=== PATIENT | female | born 1940 | race Caucasian/White ===

== ENCOUNTER 2022-08-24 10:45 | Outpatient (RCR) | payer MEDICARE, OTHER, SELFPAY ==
--- NOTE | 2022-07-21 08:41 | PT.OPEX ---
PT [place] Outpatient Eval PT [facility] Outpatient Eval Start: 07/21/22 07:16 Freq: Status: Active Protocol: Document 07/21/22 07:16 YANICK (Rec: 07/21/22 08:08 YANICK [id number]) E-signed By Lorrie Hernandez PT Physical Therapy Outpatient Evaluation Insurance Information Recert Due Date 10/13/22 Insurance Name Medicare B Medical Diagnosis Balance Deficit Treating Diagnosis Trish LE Weakness, Impaired gait skills Fall Risk Functional Strength Deficit Referring MD Dr Osman Sinclair Subjective Subjective Marleny reports having her Lt CASTRO just this past November, with PT following. I did the ex for about a month, but not really since then. I am more concerned about my balance problems. I only fell once and that was after my stroke (February 27, 2021). She denies having any real pain. Some thigh pain if I stand for too long (5-10 min). Walking seems to help reduce that pain. With a cart, I can walk for about 20-30 min, have something to hang on to. I use the cane when outdoors - fear of curbs/steps and cracks in the sidewalk, walking on the grass, etc. In the house I don't use the cane . I do still drive, but avoid driving in the dark, snow or rain. My drives then. I sleep ok, some good some not so good nights. But that has been true for about 10 years now. I live with my in a 2 story home and basement. I do fine - go slow and hang onto railings. Pain Comments Fairly painfree, unless standing for 5-10 min, have some Lt thigh pain. Date of Last Physician Visit 06/08/22 Current Work Status Retired Preferred Name Kalani Precautions Treatment Precautions/Contraindications Arthritis, Seizures, Sleep Apnea Prior Surgeries: metal implants: Rt RCR, Trish thumbs, Lt TKR, Lt CASTRO Objective Range of Motion Decreased knee EXT on Rt LE (6 deg lag) Limited trunk EXT 20% of normal. Strength Significant strength loss at core and trunk EXT. She states she fatiques quickly with activities and can only stand/ walk for about 20 min at a time. Standing only 5 min Gross hip strength 2/5 EXT, ABD, ER. 3+/5 FF, ADD and IR Swelling Denies edema Palpation Asymmetric ASIC heights (due to lack of Rt knee EXT) in stance. Leveled once in supine /NWB position. Balance & Gait Walks with flat foot contact and slight lateral trunk shift Reduced endurance to reported 20 min. WBOS EO/EC was very good. NBOS EO/EC was fair 15 seconds and increased trunk sway Tandom stance with either leg forward is an average of 7 seconds. SLS average 1 sec trish. Posture Flattened lumbar spine and forward head Other/Pertinent Objective Cannot sit to stand without use of UE on chair arms more than twice in a row Deep squat Dbl leg to average 40 deg with trish hip IR and ADD due to hip weakness. Very poor control and quality of movement with attempting step up and over - quad ecc and conc use impaired Assessment Assessment/Impression 82 yo with DX of Balance Deficit. She arrived to dept via IND ambulation with use of SE Cane held in Rt hand. She ambulates with flat foot strike/reduced heel to toe and forward head. She has reduced trunk EXT. PRETTY score of 40/ 56 with impaired tandom stance , SLS and toe taps at stairs, NBOS with EC. She has significant LE weakness: can only perform 3 partial range bridges, sit to stand without use of UE on chair arms X 2 reps in 30 seconds, partial squat to 40 deg with significant trish hip IR and ADD due to hip weakness. Step up and over - unable to perform without holding on to railing , toe push off and unable to control descent against gravity - very poor trish eccentric and concentric quad control. She fatigued/SoB with 5 min on NuStep. She will benefit from continued skilled physical therapy to provide education in balance/prop tasks, strength and endurance to promote safety with gait and reduce fall risk. Thank you for this referral. Plan of Care Rehabilitation Potential Good Physical Therapy Goals In 4-6 visits, Marleny will be able to: 1. Walk up to 30 min without requiring cart to hold, 75% of the time 2. Execute 10 full range bridges and HOLD for 3 seconds each 3. Perform 5 step up and over, lightly holding railing, with improved quality and control (no toe push off and smooth descent) 4. Complete 10 min on NuStep without SoB noted In 10-12 visits, Marleny will be able to: 1. A/D flight of 10 steps with lightly holding one side rail . 2. Reduced self scoring fear of falling by at least 50% 3. Ambulate without SE Cane up to 20 min with good quality heel to toe gait pattern 4. Sit to stand at least 8 reps in 30 seconds 5. IND in entire HEP to cont on her own once DC from PT to cont to improve in gait skills , balance and reduced fall risk to remain living safely with her in their own home. Coordination/Communication With Referral Source Treatment Plan/Direct Interventions Gait Training,Neuromuscular Re -ed,Self-Care/Home Management, Therapeutic Activities, Therapeutic Exercises Frequency/Duration 1X/Wk for 12 visits Patient Will Be Discharged From Therapy Completion of LTG(s),Skills Plateau,Independent w/HEP, Independently Progressing Discharge Plan Comments Progress with strength/ endurance tasks and gait, balance and proprioception to promote improved safety and quality of gait and movement. Reduce fall risk. Evaluation Billing Untimed Code Treatment Minutes 32 Complexity Moderate Certification Information Initial Certification Date 07/21/22 Ending Certification Date 10/13/22 Provider Signature Shows Agreement With POC & Medical Necessity Physician Signature & Date Requested Please Sign/Date Here Physician Comment/Change : Physician NPI Number #
== END 2022-10-12 12:12 | disposition home or self-care (01) ==
PROVIDERS: Visit Provider Orthopaedic Surgery Sports Medicine
DX: R26.89 Other abnormalities of gait and mobility (principal); Z51.89 Encounter for other specified aftercare
CPT/HCPCS: 97110; 97162

== ENCOUNTER 2024-08-29 11:15 | Outpatient (RCR) | payer MEDICARE, OTHER, SELFPAY ==
--- NOTE | 2023-11-11 16:29 | PT.OPEX ---
PT [place] Outpatient Eval PT [facility] Outpatient Eval Start: 11/10/23 14:29 Freq: Status: Active Protocol: Document 11/10/23 14:31 MARIAH (Rec: 11/10/23 16:15 [facility] [id number]) E-signed By Patricia De La O PT Physical Therapy Outpatient Evaluation Insurance Information Recert Due Date 02/07/24 Insurance Name Medicare B Medical Diagnosis PROXIMAL HUMERAL FRACTURE S42. 302A Treating Diagnosis LEFT SHOULDER PAIN M25.512 WEAKNESS R62.81 Referring MD RABAGO Subjective Subjective I JUST WANT TO GET MY ARM BETTER. I STILL CAN'T BELIEVE I FRACTURED IT. PATIENT DESCRIBES FALLING AND LANDING ON HER LEFT SHOULDER WHILE VISITING HER DTR INCURRING A PROXIMAL HUMERAL FRACTURE. SHE HAS RETURNED HOME AND HAD A VISIT WITH DR. RABAGO WHO HAS REFERRED HER TO BEGIN THERAPY. SHE HAS BEEN PERFORMING HER PENDULUM AND PROM USING HER CONTRALATERAL HAND/ARM FROM A SEATED POSITION WELL AAROM USING A DOWL VAL/CANE FOR ABD, ER, AND FLEX. SHE DESCRIBES THESE EXERCISES QUITE DIFFICULT AND PAINFUL SHE IS WEARING HER ARM CUFF WHEN SHE IS IN THE COMMUNITY BUT NOTHING AT HOME. SHE HAS NOT RETURNED TO HER BED BUT RATHER SLEEPING IN A RECLINER. Pain Comments Date of Last Physician Visit 10/31/23 Current Work Status Retired Preferred Name TARA Precautions Treatment Precautions/Contraindications 11/10/23: 2 MORE WEEKS OF NO AROM Objective Other/Pertinent Objective CERVICAL ROM: WFL SHOULDER AROM - PROM Flexion: L70 *-132 Abduction: L50 -88 Internal Rotation: L BOTTOM GLUT/RIGHT T4 External Rotation: L 22 AT 0/ ABD -38 JOINT MOBILITY/PALPATION: POINT TENDER ABOUT THE PROXIMAL BORDER TX: RAE X 5MIN SHOULDER SHRUG WITH BKWD ROTATION SEATED AAROM TABLE SLIDE FLEX 5 X 10 SEC SEATED SCAP SQUEEZE SUPINE CHEST PRESS AAROM X 10 SUPINE CHEST PRESS TO OVERHEAD X 10 HOLD FOR 5 SEC Assessment Assessment/Impression PATIENT IS AN [address] RABAGO TO EVAL AND TX LEFT PROXIMAL HUMERAL FX; PMHX INCLUDES BUT NOT LIMITED TO R ANKLE OA, IMPAIRED BALANCE RELATED TO LATE EFFECTS OF CVA (02/2021), ABNORMAL GAIT, H/O L CASTRO (2021), CKD 3, NOME, H/O DVT, GERD, SLEEP APNEA, H/O SEIZURE , R SHOULDER RCR (2013), L TKA (03/2013), H/O REPEATED FALLS, LUMBAR PAIN. PATIENT LIVES WITH HER SPOUSE WHO ASSISTS HER INTERMITTENTLY WITH ADL'S. SHE IS HERE FOR HER FIRST PT VISIT SINCE RETURNING BACK HOME AND C/O SIGNIFICANT PAIN ABOUT THE SHOULDER COMPLEX. SHE IS RECEPTIVE TO GENTLE, PATIENT GUIDED, AROM USING RAE/TABLE/OPP ARM. SPOKE WITH SPOUSE TO OBTAIN PULLEYS TO USE AT HOME ON [place] AND TO ENCOURAGE HER TO USE ICE IN ADDITION TO HER CURRENT PAIN MGMT. SHE KAYA PROM AND AAROM QUITE WELL BUT DID NOT TOLERATE BEING IN SUPINE. NEXT VISIT I WILL ATTEMPT TO PERFORM IN SEATED IF SHE WILL ALLOW THE PROM. SHE IS APPROPRIATE FOR SKILLED PHYSICAL THERAPY TO ADDRESS SYMPTOM MGMT, ROM, STRENGTHENING AND STABILIZATION OF RTC/SCAPULAR MUSCULATURE TO RETURN TO FUNCTIONAL USE OF HER LEFT ARM . PATIENT IS IN AGREEMENT WITH POC AND FREQ Primary Functional Limitations USE OF LUE, REACHING, ADL'S, A AUXILIARY, DRIVING Plan of Care Rehabilitation Potential Good Physical Therapy Goals STG IN 4-6 WEEKS: 1. PATIENT WILL DEMONSTRATE GOOD MGMT OF HIS PAIN AND EDEMA WITH REPORTED PAIN </3/ 10 DURING HIS HOME PROGRAM AND WITH THE PROGRESSION OF HIS PHYSICAL THERAPY. 2. PATIENT WILL RETURN TO INDEPENDENCE WITH ADL'S, RETURN TO DRIVING, AND MAINTAIN HIS PRECAUTIONS/ RESTRICTIONS 3. PATIENT WILL DEMONSTRATE PROM TO WFL TO PREPARE FOR RETURN TO FUNCTIONAL USE OF RIGHT UE; LTG WITHIN 10-12 WEEKS: 1. PATIENT WILL DEMONSTRATE AROM OF RIGHT SHOULDER TO WFL TO RETURN TO FULL FUNCTIONAL FOR ADL'S, IADL'S AND PEER CENTERED ACTIVITIES. 2. PATIENT WILL DEMONSTRATE FUNCTIONAL STRENGTH TO RETURN TO REACHING OVERHEAD, ANTERIORLY AND OUT TO SIDE NEEDED DURING PATIENT CENTERED ACTIVITIES. 3. PATIENT WILL DEMONSTRATE INDEPENDENCE WITH HIS HEP TO PROGRESS TWD THE ABOVE MENTIONED GOALS, CONTINUED MGMT OF SYMPTOMS, AND ONGOING IMPROVEMENT WITH ROM, STRENGTH AND FUNCTION FOR A FULL RETURN TO ALL ACTIVITIES Coordination/Communication With Referral Source Treatment Plan/Direct Interventions Electrical Stimulation,Ice/ Cold/Vasopneumatic,Joint Mobilization,Manual Therapy, Neuromuscular Re-ed,Self-Care/ Home Management,Therapeutic Activities,Therapeutic Exercises Frequency/Duration 1X/WK FOR 12 WEEKS Patient Will Be Discharged From Therapy Completion of LTG(s), Independently Progressing Evaluation Billing Untimed Code Treatment Minutes 20 PT Eval No Charge No Complexity Moderate Certification Information Initial Certification Date 11/10/23 Ending Certification Date 02/07/24 Provider Signature Shows Agreement With POC & Medical Necessity Physician Signature & Date Requested Please Sign/Date Here Physician Comment/Change : Physician NPI Number #
--- NOTE | 2024-02-08 11:11 | PT.OPDNX ---
PT [place] Outpatient Daily Note PT [facility] Outpatient Daily Note Start: 11/10/23 14:29 Freq: Status: Active Protocol: Document 02/08/24 09:52 MARIAH (Rec: 02/08/24 11:10 MARIAH [id number]) E-signed By Patricia De La O, PT PT OP Daily Progress Note Visit Information Note Type Daily Note,Recert/Progress Note Visit Number [id number] Insurance Information Recert Due Date 02/07/24 Insurance Name Medicare B Medical Diagnosis PROXIMAL HUMERAL FRACTURE S42. 302A Treating Diagnosis LEFT SHOULDER PAIN M25.512 WEAKNESS R62.81 Referring MD RABAGO Subjective Subjective PATIENT DENIES ANY SLIPS TRIPS OR FALLS SINCE LAST VISIT. SHE REPORTS THAT SHE WILL SEE THE ORTHO TOMORROW AND STATES, I HOPE MY BONE IS HEALING. I REALLY DON'T WANT ANYTHING ELSE WRONG. Pain Comments 11/19 Preferred Name TARA Home Exercise Home Exercise Comments 11/23/23: UPDATED HEP Objective Other/Pertinent Objective CURRENT: 02/08/24 FLEX 130, AD 124, ER @0 38, IR LOWER GLUT 01/05/24: [id number], ABD 136, ER 44, IR MID GLUT 12/22/23: STDG AROM FLEX 122, ABD 108, ER@0 34, IR BOTTOM TO MID GLUT 12/07/23 AROM (STDG)-PROM( SUPINE): FLEX 108-168, ABD 88- 112, ER (@0) 28-@45 32, IR MID GLUT Patient Instructed in Risks/Benefits Yes Therapeutic Exercise Therapeutic Exercise Minutes (minutes) 45 Therapeutic Exercise: To Restore UBE X 5' NO RESISTANCE FWD Functional Status RAE STRAIGHT ARM X 4MIN (VC TO SLOW DOWN) NOT TODAY BALL WALK UP WALL INTO FLEX x 10 SEATED FWD FLEX FROM THIGH TO OVERHEAD X 10 SEATED SHOULDER TO OH X 10 SNOW BILLIE FWD X 10 W/ ASSISTANCE REVIEWED SEATED HANDS BEHIND HEAD AND BUTTERFLY X 10 STDG TB (green) ROW X 15 HOLD 3 SEC STDG TB (green) S'EXT X 15 HOLD 3 SEC STDG AAROM W/CANE FLEX X 10 STDG AAROM W/CANE ABD X 10 WALL CIRCLES X 10 CW/CCW NOT TODAY WALL ALPHABET NOT TODAY STDG SHOULDER FLEX FROM THIGH W/CANE X 10 SEATED SHOULDER B ABD X 10 NOT TODAY STDG CHEST TO OH W/CANE X 10 Treatment Minutes Timed Code Treatment Minutes 45 Total Treatment Time 45 Billing Units Therapeutic Exercise Units 3 Plan of Care Physical Therapy Goals STG IN 4-6 WEEKS: 1. PATIENT WILL DEMONSTRATE GOOD MGMT OF HIS PAIN AND EDEMA WITH REPORTED PAIN </3/ 10 DURING HIS HOME PROGRAM AND WITH THE PROGRESSION OF HIS PHYSICAL THERAPY. 2. PATIENT WILL RETURN TO INDEPENDENCE WITH ADL'S, RETURN TO DRIVING, AND MAINTAIN HIS PRECAUTIONS/ RESTRICTIONS 3. PATIENT WILL DEMONSTRATE PROM TO WFL TO PREPARE FOR RETURN TO FUNCTIONAL USE OF RIGHT UE; LTG WITHIN 10-12 WEEKS: 1. PATIENT WILL DEMONSTRATE AROM OF RIGHT SHOULDER TO WFL TO RETURN TO FULL FUNCTIONAL FOR ADL'S, IADL'S AND PEER CENTERED ACTIVITIES. 2. PATIENT WILL DEMONSTRATE FUNCTIONAL STRENGTH TO RETURN TO REACHING OVERHEAD, ANTERIORLY AND OUT TO SIDE NEEDED DURING PATIENT CENTERED ACTIVITIES. 3. PATIENT WILL DEMONSTRATE INDEPENDENCE WITH HIS HEP TO PROGRESS TWD THE ABVE MENTIONED GOALS, CONTINUED MGMT OF SYMPTOMS, AND ONGOING IMPROVEMENT WITH ROM, STRENGTH AND FUNCTION FOR A FULL RETURN TO ALL ACTIVITIES Daily Plan of Care Continue per POC Recertification Information Initial Certification Date 11/10/23 Recertification Start Date 02/08/24 Recertification Due Date 05/07/24 Reasons to Continue Skilled Therapy TARA DEMONSTRATES CONTINUED IMPROVEMENT WITH HER AROM (SEE ABOVE) WITH CONTINUED STRUGGLES WITH COMBINATION MVMTS BEHIND HEAD AND BEHIND BACK. SHE STRUGGLES WITH GROOMING D/T HER MOTION LOSS WITH INSTRUCTIONS NOT TO FORCE THIS MOTION THE XRAYS FROM HER LAST MD VISIT INDICATE AN ACTIVE FRACTURE. WE WILL CONTINUE WITH HER POC AND FREQ WITH GOAL OF IMPROVING FUNCTIONAL ROM, STRENGTH, PROPRIOCEPTION WELL FUNCTIONAL BALANCE AND SAFE MOBILITY. Rehabilitation Potential GOOD Continued Plan of Care and Interventions ROM, RTC/SCAPULAR STRENGTHENING AND STABILIZATION, FUNCTIONAL MOBILITY, GT, NEUROMUSCULAR RE -EDUCATION, MANUAL THERAPY. Provider Signature Shows Agreement With POC & Medical Necessity Physician Comment/Change Comment or Changes
--- NOTE | 2024-06-05 15:55 | PT.OPDNX ---
PT [place] Outpatient Daily Note PT [facility] Out[facility] Daily Note Start: 11/10/23 14:29 Freq: Status: Active Protocol: Document 06/05/24 13:15 MARIAH (Rec: 06/05/24 15:55 MARIAH [id number]) E-signed By Patricia De La O, PT PT OP Daily Progress Note Visit Information Note Type Daily Note Visit Number [id number] Insurance Information Recert Due Date 02/07/24 Insurance Name Medicare B Medical Diagnosis PROXIMAL HUMERAL FRACTURE S42. 302A Treating Diagnosis LEFT SHOULDER PAIN M25.512 WEAKNESS R62.81 Referring MD RABAGO Subjective Preferred Name TARA Juárez PATIENT RETURNS AFTER TAKING 1MONTH HOLD ON THERAPY AND FEELS HER SHOULDER IS WHAT IT IS. I'M NOT SURE IF GOING TO GET STRETCHED ENOUGH TO DO MY HAIR. I THINK MY BALANCE IS MORE IMPORTANT. Pain Comments 0-2 Precautions Treatment Precautions/Contraindications NO FURTHER APPTS W/ORTHO UNLESS NEEDED Objective Other/Pertinent Objective CURRENT: 06/04/24 STDG AROM 160 /142/45/L2 04/05/24 STDG FLEX AROM 166/ 138/ 45, L5 03/08/24 STDG AROM FLEX 160, ABD 130, ER@0 54, L2 02/22/24 STDG AROM FLEX 146, ABD 128, ER@0 38, IR L4 02/08/24 FLEX 130, AD 124, ER @0 38, IR LOWER GLUT 01/05/24: [id number], ABD 136, ER 44, IR MID GLUT 12/22/23: STDG AROM FLEX 122, ABD 108, ER@0 34, IR BOTTOM TO MID GLUT 12/07/23 AROM (STDG)-PROM( SUPINE): FLEX 108-168, ABD 88- 112, ER (@0) 28-@45 32, IR MID GLUT Functional Test Performed & Score TUG 14 30 STS 10 PRETTY 20/56 : Pretty Balance Scale = 20 This score is associated with almost 100% fall risk and the patient is either already wheelchair bound or may be in the near future. Patient Instructed in Risks/Benefits Yes Therapeutic Exercise Therapeutic Exercise Minutes (minutes) 20 Therapeutic Exercise: To Restore UBE X 5' (2.5 FWD/2.5BKWD) Functional Status BALANCE EXAMS SIDE STEPPING R/L X 20' BKWD WALKING X 10' WALKING WITH SMALLEST KB 40' X 2 SBA Neuromuscular Re-Ed Neuromuscular Reeducation Minutes ( 20 minutes) Neuromuscular Reeducation Comments TUG PRETTY 30 SEC STS STEP TAP X 10 STATIC STAND ON FOAM W/10BOS- >SMALL HEAD TURNS CGA>TRINH HIP ABD R/L X 10 1P STEP UP/DOWN RIGHT THEN UP/ DOWN LEFT 2 X 5 EA WITH ONE RAILING Treatment Minutes Timed Code Treatment Minutes 40 Total Treatment Time 40 Billing Units Therapeutic Exercise Units 3 Assessment/Impression Assessment/Impression SEE BELOW Plan of Care Physical Therapy Goals 1. IMPROVE CORE/HIP/GLUT STRENGTH AND TRUNK STABILITY OVER THE NEXT 6-8 WEEKS FOR IMPROVED FUNCTIONAL MOBILITY, BALANCE, AND GAIT TO DECREASE RISK FOR FALLS. 2. IMPROVE PRETTY SCORE FROM 20/ 56 OVER THE NEXT 6-8 WEEKS FOR IMPROVED SAFETY WITH DAILY ACTIVITIES AND DECREASED RISK OF FALLS. 3. IMPROVE BALANCE, COORDINATION OVER THE NEXT 6-8 WEEKS FOR IMPROVED GAIT AND SAFETY FOR COMMUNITY NAVIGATION WELL PEER CENTERED ACTIVITIES. 4. PATIENT WILL BE INDEPENDENT WITH HER HEP WITH IN 8-12 WEEKS FOR PROGRESSION TOWARD THE AFOREMENTIONED GOALS, CONTINUED SELF IMPROVEMENT WITH STRENGTH, COORDINATION, GAIT, AND SAFETY AWARENESS. Daily Plan of Care Continue per POC Recertification Information Initial Certification Date 11/10/23 Recertification Start Date 06/05/24 Recertification Due Date 09/02/24 Reasons to Continue Skilled Therapy PATIENT RETURNS AFTER A MONTH OUT OF THE CLINIC PERFORMING HER INDIVIDUAL HEP. SHE DEMONSTRATES ROM SIMILAR TO HER PREVIOUS MEASUREMENTS WITHIN 5% BUT UNABLE TO REACH BEHIND HER HEAD ENOUGH TO GROOM HER HAIR. WE HAVE REDIRECTED TO FOCUS ON HER FUNCTIONAL BALANCE AND SAFETY TEACHING NOTING A PRETTY BALANCE EXAM ASSESSING BOTH STATIC AND DYNAMIC FUNCTIONAL BALANCE SCORE OF 20/56 INDICATING A 66% IMMINENT RISK FOR FALL. SHE IS APPROPRIATE FOR SKILLED PHYSICAL THERAPY TO ADDRESS HER FUNCTIONAL BALANCE, GT FOR A VARIETY OF SURFACES, AND BLE/CORE STRENGTHENING IN ORDER TO REDUCE HER RISK FOR FALLS AND PARTICIPATE IN BOTH FAMILY AND PEER CENTERED ACTIVITIES SAFELY AND CONSISTENTLY. Rehabilitation Potential GOOD Continued Plan of Care and Interventions BLE/CORE STRENGTHENING, GT OVER A VARIETY OF SURFACES, FUNCTIONAL BALANCE TRAINING Provider Signature Shows Agreement With POC & Medical Necessity Physician Comment/Change Comment or Changes
== END 2024-09-04 11:58 | disposition home or self-care (01) ==
PROVIDERS: Visit Provider Orthopaedic Surgery Sports Medicine
DX: S42.302A Unspecified fracture of shaft of humerus, left arm, initial encounter for closed fracture (principal); Z51.89 Encounter for other specified aftercare
CPT/HCPCS: 97110; 97140; 97162

== ENCOUNTER 2024-10-05 12:53 | Inpatient (IN) | payer MEDICARE, OTHER, SELFPAY ==
[2024-10-05 13:12] VITALS: BP 137/81; PULSE 88; RESP 20; TEMP 37.2; O2SAT 96
--- NOTE | 2024-10-05 14:43 | CRLHL7_ITS ---
For Patients: As a result of the Century Cures Act, medical imaging exams and procedure reports are released immediately into your electronic medical record. You may view this report before your referring provider. If you have questions, please contact your health care provider. INDICATION: Right-sided hip pain after a fall COMPARISON: None. TECHNIQUE: CT of the right hip performed without intravenous contrast. FINDINGS: Diffuse osseous demineralization. Acute comminuted mildly displaced fracture of the right femur greater trochanter. The fracture line extends into the intertrochanteric region, but no extension is detected into the femoral neck or lesser trochanter. Mild degenerative change of the right hip. Mild degenerative change of the pubic symphysis with chondrocalcinosis. Partially imaged at least mild degenerative change of the sacroiliac joints. Partially imaged left total hip arthroplasty. Multiple small densely calcified uterine fibroids. There are severe atherosclerotic vascular calcifications. IMPRESSION: Acute comminuted mildly displaced fracture of the right femur greater trochanter. The fracture line extends into the intertrochanteric region, but no extension is detected into the femoral neck or lesser trochanter. Mild degenerative change of the right hip. Please note that all CT scans at this facility use dose modulation, iterative reconstruction, and/or weight-based dosing when appropriate to reduce radiation dose to as low as reasonably achievable. Dictated by Rios Hannah MD @ 10/05/2024 3:31:19 PM (Electronically Signed)
--- NOTE | 2024-10-05 15:48 | CRLHL7_ITS ---
For Patients: As a result of the Cures Act, medical imaging exams and procedure reports are released immediately into your electronic medical record. You may view this report before your referring provider. If you have questions, please contact your health care provider. Indication: Hip fracture. Technique: AP view of the pelvis and two views of the right hip. Comparison: None. Findings: Bones: Demineralization of visualized bones. There is subtle irregularity at the greater trochanter. Left total hip arthroplasty changes. Orthopedic hardware appears to be in appropriate alignment.. Joint spaces: Unremarkable. Soft tissues: Unremarkable. Impression: Subtle irregularity and possible lucency at the greater trochanter. Correlate with point tenderness and mechanism of injury. If there is persistent concern for fracture consider further evaluation with CT of the right hip as clinically indicated. Dictated by Robson Viera MD @ 10/05/2024 4:37:26 PM (Electronically Signed)
--- NOTE | 2024-10-05 15:54 | ED_ITS ---
HPI - Fall General Date Seen: 10/05/24 Chief Complaint: Fall/Minor Trauma Stated Complaint: fall - leg injury Time Seen by Provider: 10/05/24 14:36 Source: patient and family Mode of arrival: wheelchair Limitations: no limitations History of Present Illness HPI Narrative: Patient is an 84-year-old female presenting to the emergency department for right hip pain. Couple days ago she was at her daughter's house for Christal when she lost her balance and fell over. She states she always has poor balance and she this fall occurred when she was bending over trying to pick something up. She adamantly denies hitting her head. The fall was witnessed by her daughter. Pain has not been too bad but she is unable to put any pressure on her right leg. Nor other injuries noted. Denies any numbness to the right leg or any back pain. Is currently on warfarin for AFib. States right now most of her pain is to her left upper medial femur and left groin. Related Data Home Medications ?Medication ?Instructions ?Recorded ?Confirmed atorvastatin 20 mg tablet 20 mg PO HS 06/02/22 10/05/24 calcium citrate 250 mg PO QDAY 06/02/22 02/14/24 cholecalciferol (vitamin D3) 25 1,000 unit PO DAILY 06/02/22 02/14/24 mcg (1,000 unit) capsule omeprazole 20 mg capsule,delayed 20 mg PO QDAY 06/02/22 02/14/24 release phenytoin sodium extended 100 mg 100 mg PO QAM 06/02/22 10/05/24 capsule carvedilol 6.25 mg tablet 6.25 mg PO BID 10/28/23 10/05/24 warfarin 2 mg tablet 3 - 4 mg PO DAILY 02/14/24 10/05/24 phenytoin sodium extended 100 mg 200 mg PO HS 10/05/24 10/05/24 capsule Allergies Allergy/AdvReac Type Severity Reaction Status Date / Time NSAIDS (Non-Steroidal Allergy Unknown Verified 10/05/24 13:19 Anti-Inflamma Review of Systems Narrative: Pertinent systems reviewed and were negative unless stated in HPI PFSH PFSH Medical History DVT (deep venous thrombosis) (2013) ?I82.409 - Acute embolism and thrombosis of unspecified deep veins of unspecified lower extremity (ICD-10) Arthritis ?M19.90 - Unspecified osteoarthritis, unspecified site (ICD-10) GERD (gastroesophageal reflux disease) ?K21.9 - Gastro-esophageal reflux disease without esophagitis (ICD-10) Sleep apnea ?G47.30 - Sleep apnea, unspecified (ICD-10) Seizures ?R56.9 - Unspecified convulsions (ICD-10) Surgical History History of thumb surgery (04/17/14) ?Z98.890 - Other specified postprocedural states (ICD-10) History of thumb surgery (03/15/18) ?Z98.890 - Other specified postprocedural states (ICD-10) History of arthroscopy of right shoulder (09/11/14) ?Z98.890 - Other specified postprocedural states (ICD-10) H/O tubal ligation ?Z98.51 - Tubal ligation status (ICD-10) 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) ?Z96.652 - Presence of left artificial knee joint (ICD-10) History of appendectomy ?Z90.49 - Acquired absence of other specified parts of digestive tract (ICD- 10) 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) ?Z96.642 - Presence of left artificial hip joint (ICD-10) Family History Mother Diabetes Heart problem High blood pressure Father Alcohol dependence Sister COPD (chronic obstructive pulmonary disease) Heart problem Other Rheumatoid arthritis Social History Smoking Status: Never smoker Do you use any of these nicotine containing products: None Second hand tobacco smoke exposure: No How often do you have a drink containing alcohol: never AUDIT-C Alcohol total score: 0 Non-prescribed substance use: denies use Exam Narrative: Exam Narrative: Const: Well-nourished, Well-developed, in mild distress Eyes: PERRL, no conjunctival injection, and symmetrical lids HENT: Atraumatic external nose and ears. Moist mucous membranes. Neck: Symmetric, trachea midline, No thyromegaly. CVS: RRR, No murmurs or gallops. Peripheral pulses 2+ and equal in all extremities RESP: Unlabored respiratory effort. Clear to auscultation bilaterally. GI: Nontender/Nondistended, No rebound or guarding. MSK:Extremities w/o deformity, decreased range of motion to right hip. Tenderness of left groin and left upper medial femur. Skin: Warm, Dry. No rashes or lesions. Neuro: Normal Muscle tone, No focal neurological deficits. Psych: Awake, Alert, & Oriented x3. Appropriate mood and affect. Const: Vital Signs, click to edit/add: Vital Signs - 24 hr 10/05/24 13:12 Temperature 99 F Pulse Rate [Pulse Oximeter] 88 Respiratory Rate 20 Blood Pressure [Ri t Upper Arm] 137/81 Pulse Oximetry 96 Oxygen Delivery Me thod Room Air Course Vital Signs Vital signs: Initial Vital Signs Temperature 99 F 10/05/24 13:12 Temperature Source Temporal Artery Scan 10/05/24 13:12 Pulse Rate 88 10/05/24 13:12 Pulse Rhythm Regular 10/05/24 13:12 Respiratory Rate 20 10/05/24 13:12 Blood Pressure 137/81 10/05/24 13:12 Blood Pressure Mean 99 10/05/24 13:12 Blood Pressure Position Sitting 10/05/24 13:12 Pulse Oximetry 96 10/05/24 13:12 Oxygen Delivery Method Room Air 10/05/24 13:12 Vital Signs Temperature 99 F 10/05/24 13:12 Pulse Rate 88 10/05/24 13:12 Respiratory Rate 20 10/05/24 13:12 Blood Pressure 137/81 10/05/24 13:12 Pulse Oximetry 96 10/05/24 13:12 Oxygen Delivery Method Room Air 10/05/24 13:12 Temperature 99 F 10/05/24 13:12 Pulse Rate 88 10/05/24 13:12 Respiratory Rate 20 10/05/24 13:12 Blood Pressure 137/81 10/05/24 13:12 Pulse Oximetry 96 10/05/24 13:12 Oxygen Delivery Method Room Air 10/05/24 13:12 MDM - Fall MDM Narrative Medical decision making narrative: Patient is an 84-year-old female presenting after fall. She is otherwise doing well. Cannot put pressure to her right leg. I am concerned about hip fracture and I will go straight to a CT scan for better evaluation. Is not requesting anything for pain at this time. CT scan does show any acute greater trochanteric fracture. I spoke to the on- call orthopedic PA who states they will do surgery tomorrow. Is asking for AP pelvis and cross-table lateral views on x-ray. I spoke to radiology department and they will do these imaging. Will also order CBC, BMP, INR. I spoke to the admitting hospitalist who accepted her for admission. Patient is agreeable to this plan. Imaging Data Right hip CT: Attestation: I have reviewed the pertinent imaging results. Radiologist's impression: Acute comminuted mildly displaced fracture of the right femur greater trochanter. The fracture line extends into the intertrochanteric region, but no extension is detected into the femoral neck or lesser trochanter. Mild degenerative change of the right hip. Please note that all CT scans at this facility use dose modulation, iterative reconstruction, and/or weight-based dosing when appropriate to reduce radiation dose to as low as reasonably achievable. Dictated by Rios Hannah MD @ 10/05/2024 3:31:19 PM Discharge Plan Discharge Clinical Impression: Closed fracture of right hip Qualifiers: Encounter type: initial encounter Qualified Code(s): S72.001A - Fracture of unspecified part of neck of right femur, initial encounter for closed fracture Patient Disposition: Admitted As Observation Condition: Stable Prescriptions: No Action carvedilol 6.25 mg tablet 6.25 mg PO BID warfarin 2 mg tablet 3 - 4 mg PO DAILY Rx Instructions: 3 MG EVERY TUESDAY, 4 MG ALL OTHER DAYS OF THE WEEK cholecalciferol (vitamin D3) 25 mcg (1,000 unit) capsule 1,000 unit PO DAILY phenytoin sodium extended 100 mg capsule 100 mg PO QAM atorvastatin 20 mg tablet 20 mg PO HS omeprazole 20 mg capsule,delayed release(DR/EC) 20 mg PO QDAY calcium citrate 250 mg calcium tablet 250 mg PO QDAY phenytoin sodium extended 100 mg capsule 200 mg PO HS Follow Up/Referrals: Provider,Not a Local [Primary Care Provider] -
[2024-10-05 17:17] LABS: Basophils Absolute Auto 0.02 K/uL (0.00-0.30); Basophils Percent Auto 0.4 % (0.0-3.0); Eosinophils Absolute Auto 0.14 K/uL (0.00-0.50); Eosinophils Percent Auto 3.1 % (0.0-7.0); Hematocrit 32.1 % (33.0-51.0); Hemoglobin* 10.4 gm/dL (12.0-16.0); Lymphocytes Percent Auto 26.1 % (20-44); Mean Corpuscular HGB Conc 32 gm/dL (32-36); Mean Corpuscular Hemoglobin 32 pg (26-34); Mean Corpuscular Volume 99 fL (80-100); Monocytes Percent Auto 9.6 % (0.0-11.0); Neutrophils Absolute Auto 2.79 K/uL (1.7-7.0); Neutrophils Percent Auto 60.8 % (42.0-72.0); Platelet Count* 121 K/uL (140-440); RDW Coefficient of Variation % 12.9 % (11.5-15.5); Red Blood Count 3.24 m/uL (4.00-5.20); White Blood Count* 4.59 K/uL (4.50-11.00)
--- NOTE | 2024-10-05 17:20 | ED.NURSE ---
Patient able to use bedpan with help from nursing staff. Able to have a large void. Rolls well to both sides
[2024-10-05 17:31] LABS: Slide Review Reflex No
[2024-10-05 17:37] LABS: Chloride* 106 mmol/L (96-114); INR 2.51 (0.91-1.10); Sodium* 136 mmol/L (135-149)
[2024-10-05 17:38] LABS: Potassium* 4.4 mmol/L (3.6-5.1)
[2024-10-05 17:40] LABS: Anion Gap 4 mEq/L (7-15); Carbon Dioxide* 26 mmol/L (20-32); Creatinine* 0.6 mg/dL (0.5-1.5); Estimated Glomerular Filt Rate 88 ml/min
[2024-10-05 17:41] LABS: Blood Urea Nitrogen* 19 mg/dL (7-30); Calcium* 9.4 mg/dL (8.4-10.6); Glucose* 102 mg/dL (60-115)
[2024-10-05 17:42] VITALS: BP 164/85; PULSE 86; RESP 16; TEMP 37.3; O2SAT 97; BMI 25.7
--- NOTE | 2024-10-05 17:47 | PM.IMHP1 ---
Hospitalist- H&P: HPI History of Present Illness Date Seen: 10/05/24 Chief complaint: fall - leg injury Narrative: Marleny Thurman is a 84 year old woman presents to the emergency department for persistent right hip pain status post fall 10/02/24. Was visiting her daughter in [place]. Was preparing some [employer] decorations. Was not using her cane as she was walking. Bent forward to reach for something when she lost her balance. Fell landing on her right hip. Did not strike her head. No other injuries. No loss of consciousness. Only able to get up with help from son-in-law and grandson. Tried for a couple days to see if it would get better but did not in so that she presents to our emergency department today for further assessment. Complains of pain in right upper medial femur and right groin. 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 INR goal is 2-3. Review of Systems Status of ROS: Reports: 6 or more systems reviewed and unremarkable except as noted in History and below [facility] Medical History Chronic anticoagulation ?Z79.01 - [facility] (current) use of anticoagulants (ICD-10) Seizure disorder ?G40.909 - Epilepsy, unspecified, not intractable, without status epilepticus (ICD-10) Constipation ?K59.00 - Constipation, unspecified (ICD-10) Cerebellar dysmetria ?R27.8 - Other lack of coordination (ICD-10) Lumbar spinal stenosis ?M48.061 - Spinal stenosis, lumbar region without neurogenic claudication (ICD-10) Hyperlipidemia ?E78.5 - Hyperlipidemia, unspecified (ICD-10) Obstructive sleep apnea ?G47.33 - Obstructive sleep apnea (adult) (pediatric) (ICD-10) Chronic kidney disease ?N18.9 - Chronic kidney disease, unspecified (ICD-10) Essential hypertension ?I10 - Essential (primary) hypertension (ICD-10) Osteoarthritis ?M19.90 - Unspecified osteoarthritis, unspecified site (ICD-10) 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 - Ataxia following cerebral infarction (ICD-10) History of cerebellar stroke ?Z86.73 - Personal history of transient ischemic attack (TIA), and cerebral infarction without residual deficits (ICD-10) History of embolic stroke ?Z86.73 - Personal history of transient ischemic attack (TIA), and cerebral infarction without residual deficits (ICD-10) DVT (deep venous thrombosis) (2012) ?I82.409 - Acute embolism and thrombosis of unspecified deep veins of unspecified lower extremity (ICD-10) Arthritis ?M19.90 - Unspecified osteoarthritis, unspecified site (ICD-10) GERD (gastroesophageal reflux disease) ?K21.9 - Gastro-esophageal reflux disease without esophagitis (ICD-10) Sleep apnea ?G47.30 - Sleep apnea, unspecified (ICD-10) Seizures ?R56.9 - Unspecified convulsions (ICD-10) Surgical History History of thumb surgery (04/17/14) ?Z98.890 - Other specified postprocedural states (ICD-10) History of thumb surgery (03/15/18) ?Z98.890 - Other specified postprocedural states (ICD-10) History of arthroscopy of right shoulder (09/11/14) ?Z98.890 - Other specified postprocedural states (ICD-10) H/O tubal ligation ?Z98.51 - Tubal ligation status (ICD-10) 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) ?Z96.652 - Presence of left artificial knee joint (ICD-10) History of appendectomy ?Z90.49 - Acquired absence of other specified parts of digestive tract (ICD-10) 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) ?Z96.642 - Presence of left artificial hip joint (ICD-10) Family History Mother Diabetes Heart problem High blood pressure Father Alcohol dependence Sister COPD (chronic obstructive pulmonary disease) Heart problem Other Rheumatoid arthritis Social History Smoking Status: Never smoker Do you use any of these nicotine containing products: None Second hand tobacco smoke exposure: No How often do you have a drink containing alcohol: never AUDIT-C Alcohol total score: 0 Non-prescribed substance use: denies use Meds Home Medications and Allergies Home Medications ?Medication ?Instructions ?Recorded ?Confirmed ?Type atorvastatin 20 mg tablet 20 mg PO HS 06/02/22 10/05/24 History cholecalciferol (vitamin D3) 25 1,000 unit PO DAILY 06/02/22 10/05/24 History mcg (1,000 unit) capsule phenytoin sodium extended 100 mg 100 mg PO QAM 06/02/22 10/05/24 History capsule carvedilol 6.25 mg tablet 6.25 mg PO BID 10/28/23 10/05/24 History warfarin 2 mg tablet 3 - 4 mg PO DAILY 02/14/24 10/05/24 History calcium 1 tab PO BID 10/05/24 10/05/24 History omeprazole 40 mg capsule,delayed 40 mg PO DAILY 10/05/24 10/05/24 History release phenytoin sodium extended 100 mg 200 mg PO HS 10/05/24 10/05/24 History capsule vit C 250 mg-vit E 90 mg-zinc 40 1 tab PO BID 10/05/24 10/05/24 History mg-copper 1 or-[id number] capsule (PreserVision AREDS-2) Allergies Allergy/AdvReac Type Severity Reaction Status Date / Time NSAIDS (Non-Steroidal Allergy Unknown Verified 10/05/24 13:19 Anti-Inflamma Exam Narrative: Exam Narrative: Exam patient in the hospital emergency department. Appears comfortable when I see her. Vision and hearing are adequate. Alert and oriented x3. Friendly, articulate, cooperative. External auditory canals are clear. Tympanic membranes normal. Midline nasal septum. Dentition in good repair. Buccal mucosa is moist. No icterus or conjunctival injection. Conjugate gaze. Cranial nerves 3-12 grossly normal. Neck is supple. Midline trachea. No head neck lymphadenopathy. Lungs are clear to auscultation without wheezing, rhonchi, or rales. Chest wall excursions are full. Heart tones with regular rhythm, normal S1-S2. Grade 2-3/6 systolic murmur best heard left lower sternal border no gallops or rubs. PMI not laterally displaced. Abdomen with active bowel sounds, soft, nontender. No rebound or guarding. Chronic bilateral lower extremity edema left greater than right. No focal motor neurologic deficits. Skin is intact. Const: Vital Signs, click to edit/add: Vital Signs - 24 hr 10/05/24 13:12 Temperature 99 F Pulse Rate [Pulse Oximeter] 88 Respiratory Rate 20 Blood Pressure [Ri ght Upper Arm] 137/81 Pulse Oximetry 96 Oxygen Delivery Me thod Room Air Hospitalist - H&P: Result Labs Labs: Short CBC 10/05/24 Range/Units 17:11 WBC 4.59 (4.50-11.00) K/uL Hgb 10.4 L (12.0-16.0) gm/dL Hct 32.1 L (33.0-51.0) % Plt Count 121 L (140-440) K/uL Imaging CT scan right hip: Attestation: I have reviewed the pertinent imaging results. Radiologist's impression: Acute comminuted mildly displaced fracture of the right femur greater trochanter. The fracture line extends into the intertrochanteric region, but no extension is detected into the femoral neck or lesser trochanter. Mild degenerative change of the right hip. Assessment and Plan Assessment and plan (1) Closed fracture of right hip: Problem comment: -CT scan right hip on 10/05/2024 revealed the following: Acute comminuted mildly displaced fracture of the right femur greater trochanter. The fracture line extends into the intertrochanteric region, but no extension is detected into the femoral neck or lesser trochanter. Mild degenerative change of the right hip. -Dr. 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 Will ask Physical therapy and Occupational therapy to consult and treat. 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 Last seizure when she was in her 20s. Continues to be on lifelong antiseizure medication. -continue with phenytoin 100 mg in the morning and 200 mg in the evening Status: Acute (5) Anemia: Problem comment: -10/05/2024 hemoglobin 10, MCV 99, MCH 32 -will check iron studies and vitamin B12 level -monitor Status: Acute (6) Thrombocytopenia: Problem comment: -10/05/2024 platelet count 121,000 -monitor Status: Acute (7) Chronic anticoagulation: Problem comment: -warfarin anticoagulation, INR goal 2-3 -10/05/2024 INR 2.5, hold warfarin, administer vitamin K 5 mg IV in preparation for orthopedic surgery on 10/06/2024 for closed hip fracture, recheck INR in the morning and consider additional vitamin K of warranted -pharmacy consultation placed to help with dosing of warfarin postop Status: Acute Plan 1. Reviewed impression and plans and recommendations with patient. 2. Answered her questions to her satisfaction. 3. She is agreeable to above stated plans and recommendations. 4. Would certainly benefit from outpatient assessment for osteoporosis in consideration of initiation for treatment depending on findings. Total Time Spent Total Time Spent: 65 min
[2024-10-05] MEDS: PHYTONADIONE (VIT K1) 5 MG in 0.9 % SODIUM CHLORIDE 50 ml 50 ML 100 MG IVPB (18:42)
[2024-10-05 19:08] LABS: Appearance Urine Clear (Clear); Bilirubin Urine Negative (Negative); Blood Urine Trace-intact (Negative); Color Urine Yellow (Yellow); Glucose Urine Negative (Negative); Ketones Urine Negative (Negative); Leukocyte Esterase Urine Negative (Negative); Nitrite Urine Negative (Negative); Protein Urine Negative (Negative); Specific Gravity Urine 1.015 (1.000-1.030); Urobilinogen Urine 0.2 (0.2-1.0); pH Urine 5.5 (5.0-8.5)
--- NOTE | 2024-10-05 19:10 | PC.NURSE ---
Pleasant and cooperative, alert and oriented patient was admitted to [facility] via cart at approximately 1730. VSS and temp 99.1F. She denies pain. Vitamin K given per MD order. Catheter inserted with 400ml of clear, yellow urine out and sample was sent to lab. Report given to oncoming nurse.
[2024-10-05 19:54] LABS: RBC Urine 0-2 (0-2); Squamous Epithelial Cell Urine Few (None-Few); WBC Urine 0-2 (0-5)
[2024-10-05] MEDS: ATORVASTATIN 10 MG TABLET 20 MG PO (20:16)
[2024-10-05] MEDS: PHENYTOIN EXTENDED RELEASE 100 MG CAPSULE 200 MG PO (20:17)
[2024-10-05] MEDS: carvediloL 6.25 MG TABLET PO (20:17)
[2024-10-05 21:03] VITALS: BP 126/59; PULSE 90; RESP 18; TEMP 37; O2SAT 96
[2024-10-06] VITALS (25 sets, daily range): BP systolic 110–174; BP diastolic 55–101; PULSE 70–100; RESP 14–20; TEMP 35.8–37.6; O2SAT 88–100
[2024-10-06] MEDS: SODIUM CHLORIDE 0.9 % (FLUSH) 10 ML SYRINGE 5 ML IVF (00:11)
[2024-10-06] MEDS: 0.9 % SODIUM CHLORIDE 1000 ml 1,000 ML 75 ML IV (00:11)
[2024-10-06 04:31] LABS: Hematocrit 27.9 % (33.0-51.0); Hemoglobin* 9.1 gm/dL (12.0-16.0); Mean Corpuscular HGB Conc 33 gm/dL (32-36); Mean Corpuscular Hemoglobin 32 pg (26-34); Mean Corpuscular Volume 99 fL (80-100); Platelet Count* 109 K/uL (140-440); Red Blood Count 2.83 m/uL (4.00-5.20); White Blood Count* 3.77 K/uL (4.50-11.00)
[2024-10-06 04:45] LABS: Slide Review Reflex No
[2024-10-06 05:00] LABS: Chloride* 108 mmol/L (96-114); Sodium* 135 mmol/L (135-149)
[2024-10-06 05:01] LABS: Potassium* 4.4 mmol/L (3.6-5.1)
[2024-10-06 05:03] LABS: Creatinine* 0.5 mg/dL (0.5-1.5); Est. Creatinine Clearance* 35.52; Estimated Glomerular Filt Rate 92 ml/min; Iron* 54 ug/dL (37-170)
[2024-10-06 05:04] LABS: Anion Gap 4 mEq/L (7-15); Blood Urea Nitrogen* 22 mg/dL (7-30); Carbon Dioxide* 23 mmol/L (20-32); Glucose* 96 mg/dL (60-115)
[2024-10-06 05:05] LABS: Calcium* 8.7 mg/dL (8.4-10.6)
[2024-10-06 05:07] LABS: C Reactive Protein* 6.8 mg/dL (0.5-1.0)
[2024-10-06 05:12] LABS: Percent Iron Saturation 25 % (20-50); Total Iron Binding Capacity 215 ug/dL (265-497)
[2024-10-06 05:55] LABS: Vitamin B12* 194 pg/mL (243-894)
[2024-10-06 06:55] LABS: INR 1.27 (0.91-1.10); Prothrombin Time 16.8 Seconds
--- NOTE | 2024-10-06 07:01 | PC.NURSE ---
End of shift [id number] ? Pt alert, oriented, cooperative. Pt on bedrest during shift. Denies pain in R hip. Tolerating RA and NPO diet. Gomez catheter noted to be patent and draining. Pedal pulse present. Observed to sleep. Pt appears to be resting comfortably at end of shift with call light within reach. ?
--- NOTE | 2024-10-06 07:37 | REH.OT ---
Order reviewed. Pt found to have R femur fx after fall. Pending ortho consult. OT will evaluate after ortho consult to ensure appropriate treatment.
--- NOTE | 2024-10-06 08:30 | CRLHL7_ITS ---
For Patients: As a result of the Cures Act, medical imaging exams and procedure reports are released immediately into your electronic medical record. You may view this report before your referring provider. If you have questions, please contact your health care provider. Indication: INTRA OP RIGHT FEMORAL RODDING EXAM Technique: Four fluoroscopic images of the right hip. Fluoroscopic time 75.3 seconds. IMPRESSION: Fluoroscopic guidance for open reduction internal fixation of proximal femoral fracture. Dictated by Herberth Sanches MD @ 10/08/2024 9:10:48 AM (Electronically Signed)
--- NOTE | 2024-10-06 09:00 | P.ORCN_ITS ---
History of Present Illness HPI Date Seen: 10/06/24 Requesting physician: Zacarias Kramer Chief complaint: fall - leg injury Narrative: Kalani is a pleasant 84-year-old female who sustained a ground level fall and landed on her right hip approximately 3 days ago. Following the injury she developed anterior hip and groin pain that was aggravated by weight-bearing activities. Due to pain, she had difficulty walking and bearing weight. She was subsequently brought into the emergency room by her family yesterday evening, where x-rays and CT scan revealed an intertrochanteric hip fracture. She was subsequently admitted to the hospitalist service for further management. She is on chronic anticoagulation with warfarin since sustaining a CVA several years ago. Her INR was 2.51 upon admission, so she was given vitamin K to reverse the affects of the warfarin. This morning she states that she is feeling well. Her pain is well controlled, however, she does experience anterior hip and groin pain if she moves her hip. [facility] Medical History Chronic anticoagulation ?Z79.01 - shelter (current) use of anticoagulants (ICD-10) Seizure disorder ?G40.909 - Epilepsy, unspecified, not intractable, without status epilepticus (ICD-10) Constipation ?K59.00 - Constipation, unspecified (ICD-10) Cerebellar dysmetria ?R27.8 - Other lack of coordination (ICD-10) Lumbar spinal stenosis ?M48.061 - Spinal stenosis, lumbar region without neurogenic claudication (ICD-10) Hyperlipidemia ?E78.5 - Hyperlipidemia, unspecified (ICD-10) Obstructive sleep apnea ?G47.33 - Obstructive sleep apnea (adult) (pediatric) (ICD-10) Chronic kidney disease ?N18.9 - Chronic kidney disease, unspecified (ICD-10) Essential hypertension ?I10 - Essential (primary) hypertension (ICD-10) Osteoarthritis ?M19.90 - Unspecified osteoarthritis, unspecified site (ICD-10) 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 - Ataxia following cerebral infarction (ICD-10) History of cerebellar stroke ?Z86.73 - Personal history of transient ischemic attack (TIA), and cerebral infarction without residual deficits (ICD-10) History of embolic stroke ?Z86.73 - Personal history of transient ischemic attack (TIA), and cerebral infarction without residual deficits (ICD-10) DVT (deep venous thrombosis) (2013) ?I82.409 - Acute embolism and thrombosis of unspecified deep veins of unspecified lower extremity (ICD-10) Arthritis ?M19.90 - Unspecified osteoarthritis, unspecified site (ICD-10) GERD (gastroesophageal reflux disease) ?K21.9 - Gastro-esophageal reflux disease without esophagitis (ICD-10) Sleep apnea ?G47.30 - Sleep apnea, unspecified (ICD-10) Seizures ?R56.9 - Unspecified convulsions (ICD-10) Surgical History History of thumb surgery (04/17/14) ?Z98.890 - Other specified postprocedural states (ICD-10) History of thumb surgery (03/15/18) ?Z98.890 - Other specified postprocedural states (ICD-10) History of arthroscopy of right shoulder (09/11/14) ?Z98.890 - Other specified postprocedural states (ICD-10) H/O tubal ligation ?Z98.51 - Tubal ligation status (ICD-10) 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) ?Z96.652 - Presence of left artificial knee joint (ICD-10) History of appendectomy ?Z90.49 - Acquired absence of other specified parts of digestive tract (ICD- 10) 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) ?Z96.642 - Presence of left artificial hip joint (ICD-10) Family History Mother Diabetes Heart problem High blood pressure Father Alcohol dependence Sister COPD (chronic obstructive pulmonary disease) Heart problem Other Rheumatoid arthritis Social History What is your current living situation?: I presently have a place to live Problems where you live: no known problems Problems where you live details: chair lift system as well In the past 12 months, utilities in danger of being shut off: no In past 12 months, lack of transportation kept you from medical appts, meetings, work, or getting things needed for daily living: no In the past 12 mos, have been you worried that your food would run out before you had money to buy more?: never true In the past 12 mos, the food you bought just didn't last and you didn't have money to buy more?: never true Highest level of school completed/degree received: high school graduate Smoking Status: Never smoker Do you use any of these nicotine containing products: None Second hand tobacco smoke exposure: No How often do you have a drink containing alcohol: 4 or more times a week Alcohol type: wine How many standard drinks containing alcohol do you have on a typical day: 1 or 2 How often do you have six or more drinks on one occasion: Never AUDIT-C Alcohol total score: 4 Non-prescribed substance use: denies use Caffeine: Yes (cup coffee daily) How often does anyone, including family, friends and others, physically hurt you : never How often does anyone, including family, friends and others, insult or talk down to you: never How often does anyone, including family, friends and others, threaten you with harm: never How often does anyone, including family, friends and others, scream or curse at you: never service: No Meds Home Medications and Allergies Home Medications ?Medication ?Instructions ?Recorded ?Confirmed ?Type atorvastatin 20 mg tablet 20 mg PO HS 06/02/22 10/05/24 History cholecalciferol (vitamin D3) 25 1,000 unit PO DAILY 06/02/22 10/05/24 History mcg (1,000 unit) capsule phenytoin sodium extended 100 mg 100 mg PO QAM 06/02/22 10/05/24 History capsule carvedilol 6.25 mg tablet 6.25 mg PO BID 10/28/23 10/05/24 History warfarin 2 mg tablet 3 - 4 mg PO DAILY 02/14/24 10/05/24 History calcium 1 tab PO BID 10/05/24 10/05/24 History omeprazole 40 mg capsule,delayed 40 mg PO DAILY 10/05/24 10/05/24 History release phenytoin sodium extended 100 mg 200 mg PO HS 10/05/24 10/05/24 History capsule vit C 250 mg-vit E 90 mg-zinc 40 1 tab PO BID 10/05/24 10/05/24 History mg-copper 1 [id number] capsule (PreserVision AREDS-2) Allergies Allergy/AdvReac Type Severity Reaction Status Date / Time NSAIDS (Non-Steroidal Allergy Unknown Verified 10/05/24 13:19 Anti-Inflamma Ortho Exam Narrative Exam Narrative: General: Alert and oriented in no apparent distress. Musculoskeletal: Right lower extremity was examined. No obvious deformity. Anterior hip and groin pain reproduced with attempted movement of the hip. Sensation was intact to light touch throughout the dorsal plantar aspects of the foot. EHL, tibialis anterior, gastrocnemius/soleus were intact. Foot was warm and well perfused with 2+ DP pulse. Const Vital Signs, click to edit/add: Vital Signs - 24 hr 10/05/24 13:12 10/05/24 17:42 10/05/24 21:03 Temperature 99 F 99.1 F 98.6 F Pulse Rate [Pulse Oximeter] 88 86 90 Respiratory Rate 20 16 18 Blood Pressure [Right Arm] 164/85 H 126/59 L Blood Pressure [Right Upper Arm] 137/81 Pulse Oximetry 96 97 96 Oxygen Delivery Method Room Air Room Air Room Air 10/06/24 00:40 10/06/24 00:40 10/06/24 05:14 Temperature 98.7 F 98.7 F Pulse Rate [Pulse Oximeter] 87 78 Respiratory Rate 18 18 Blood Pressure [Right Arm] 140/69 H 136/63 Blood Pressure [Right Upper Arm] Pulse Oximetry 95 95 97 Oxygen Delivery Method Room Air Room Air Room Air 10/06/24 07:00 10/06/24 07:38 10/06/24 07:45 Temperature 99.0 F Pulse Rate [Pulse Oximeter] 84 Respiratory Rate 16 16 16 Blood Pressure [Right Arm] 150/85 H Blood Pressure [Right Upper Arm] Pulse Oximetry 95 95 Oxygen Delivery Method Room Air Room Air Results Labs Labs: Laboratory Results - last 48 hr 10/05/24 10/05/24 10/06/24 17:11 19:00 04:20 WBC 4.59 3.77 L RBC 3.24 L 2.83 L Hgb 10.4 L 9.1 L Hct 32.1 L 27.9 L MCV 99 99 MCH 32 32 MCHC 32 33 RDW Coeff of Dhiraj 12.9 Plt Count 121 L 109 L Neut % (Auto) 60.8 Lymph % (Auto) 26.1 Butler % (Auto) 9.6 Eos % (Auto) 3.1 Baso % (Auto) 0.4 Neut # (Auto) 2.79 Lymph # (Auto) 1.20 Butler # (Auto) 0.40 Eos # (Auto) 0.14 Baso # (Auto) 0.02 Abs Immat Gran (auto) 0.00 Imm/Tot Granulo (auto) 0.0 INR 2.51 H Sodium 136 135 Potassium 4.4 4.4 Chloride 106 108 Carbon Dioxide 26 23 Anion Gap 4 L 4 L BUN 19 22 Creatinine 0.6 0.5 Estimated Creat Clear 35.52 Estimated GFR 88 92 Glucose 102 96 Calcium 9.4 8.7 Iron 54 TIBC 215 L % Saturation 25 C-Reactive Protein 6.8 H Vitamin B12 194 L Urine Color Yellow Urine Appearance Clear Urine pH 5.5 Ur Specific Edison 1.015 Urine Protein Negative Urine Glucose (UA) Negative Urine Ketones Negative Urine Blood Trace-intact A Urine Nitrite Negative Urine Bilirubin Negative Urine Urobilinogen 0.2 Ur Leukocyte Esterase Negative Urine RBC 0-2 Urine WBC 0-2 Ur Squamous Epith Cells Few Urine Bacteria None 10/06/24 10/06/24 05:51 05:51 WBC RBC Hgb Hct MCV MCH MCHC RDW Coeff of Dhiraj Plt Count Neut % (Auto) Lymph % (Auto) Butler % (Auto) Eos % (Auto) Baso % (Auto) Neut # (Auto) Lymph # (Auto) Butler # (Auto) Eos # (Auto) Baso # (Auto) Abs Immat Gran (auto) Imm/Tot Granulo (auto) INR Cancelled 1.27 H Sodium Potassium Chloride Carbon Dioxide Anion Gap BUN Creatinine Estimated Creat Clear Estimated GFR Glucose Calcium Iron TIBC % Saturation C-Reactive Protein Vitamin B12 Urine Color Urine Appearance Urine pH Ur Specific Edison Urine Protein Urine Glucose (UA) Urine Ketones Urine Blood Urine Nitrite Urine Bilirubin Urine Urobilinogen Ur Leukocyte Esterase Urine RBC Urine WBC Ur Squamous Epith Cells Urine Bacteria Diagnostic results Additional Comments: X-rays of the right hip and pelvis and CT scan of the right hip were reviewed. These demonstrated mildly displaced fracture of the right femur greater trochanter with extension into the intertrochanteric region of the right hip. No extension into the femoral neck or lesser trochanter. Mild degenerative changes of the right hip. Assessment and Plan Assessment and plan (1) Closed fracture of right hip: Problem comment: -CT scan right hip on 10/05/2024 revealed the following: Acute comminuted mildly displaced fracture of the right femur greater trochanter. The fracture line extends into the intertrochanteric region, but no extension is detected into the femoral neck or lesser trochanter. Mild degenerative change of the right hip. -Dr. 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 Will ask Physical therapy and Occupational therapy to consult and treat. 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 Last seizure when she was in her 20s. Continues to be on lifelong antiseizure medication. -continue with phenytoin 100 mg in the morning and 200 mg in the evening Status: Acute Total time spent: Total time spent is greater than 50% in coordination of care (as documented) at patient's floor/unit and/or counseling patient: (5) Anemia: Problem comment: -10/05/2024 hemoglobin 10, MCV 99, MCH 32 -will check iron studies and vitamin B12 level -monitor Status: Acute Total time spent: Total time spent is greater than 50% in coordination of care (as documented) at patient's floor/unit and/or counseling patient: (6) Thrombocytopenia: Problem comment: -10/05/2024 platelet count 121,000 -monitor Status: Acute Total time spent: Total time spent is greater than 50% in coordination of care (as documented) at patient's floor/unit and/or counseling patient: (7) Chronic anticoagulation: Problem comment: -warfarin anticoagulation, INR goal 2-3 -10/05/2024 INR 2.5, hold warfarin, administer vitamin K 5 mg IV in preparation for orthopedic surgery on 10/06/2024 for closed hip fracture, recheck INR in the morning and consider additional vitamin K of warranted -pharmacy consultation placed to help with dosing of warfarin postop Status: Acute Total time spent: Total time spent is greater than 50% in coordination of care (as documented) at patient's floor/unit and/or counseling patient: Plan Patient has a a minimally displaced combined greater trochanter and intertrochanteric fracture of the right hip. Risks and benefits of operative treatment and alternatives to surgery were discussed with the patient this morning. Recommendation was subsequently made for surgical intervention consisting of right hip closed reduction internal fixation with a cephalomedullary hip screw to allow for early mobilization and advancement of weight-bearing, decreased pain, and healing of the fracture. Risks of surgery to include, but not limited to, infection, neurovascular injury, malunion, nonunion, hip avascular necrosis, deep vein thrombosis, pulmonary embolism, heart attack, stroke, and even were discussed with the patient. All of her questions were answered and informed consent was obtained. After discussion, she was in agreement with plan to proceed with surgery. Patient has been admitted to the hospitalist for perioperative medical management. She has been medically optimized and cleared for the planned surgical procedure . She is to remain on bedrest with plan for surgery this morning. She is has been NPO since midnight for anticipated surgery, and her INR is now 1.27.
[2024-10-06] MEDS: CEFAZOLIN 1 GM inj IVP (09:14)
--- NOTE | 2024-10-06 09:17 | PM.ORPRC ---
Procedure Note Date of procedure: 10/06/24 Procedure: PREOPERATIVE DIAGNOSIS: 1. Right greater trochanteric/intertrochanteric proximal femur fracture, closed, minimally displaced POSTOPERATIVE DIAGNOSES: 1. Right greater trochanteric/intertrochanteric proximal femur fracture, closed, minimally displaced PROCEDURE: 1. Right intertrochanteric hip fracture fixation with cephalomedullary hip screw 2. 85243 - Intraoperative fluoroscopy up to 1 hour SURGEON: Blayne Ramirez MD [employer]UST[employer] PORT DIRECTOR: Isaiah Garcia P.A.-C. An switchboard operator assistant was critical for this case to aide in patient positioning, suture manipulation, arm positioning, instrument positioning, and closure. ANESTHESIA: Spinal IMPLANTS: Synthes short TFNA nail: 12 mm X 170 mm x 130 degrees. 100 mm lag screw. Single 5.0 mm x 38 mm distal interlocking screw EBL: 75 ml COMPLICATIONS: None evident INDICATIONS: Kalani is an 84-year-old female who sustained a ground level fall 3 days ago which resulted in development of right hip pain and difficulty bearing weight. Patient was subsequently brought to the emergency department last night, where radiographic imaging revealed a right intertrochanteric hip fracture. Surgical stabilization of this fracture was recommended to allow for early mobilization and advancement of weight-bearing, decreased pain, and healing of the fracture. Prior to procedure, risks and benefits of the operative and non operative treatment were discussed with the patient. After discussion of risks, benefits, and alternatives of surgery, informed consent was obtained and the operative hip was marked. FINDINGS: Minimally displaced fracture involving the greater trochanteric and intertrochanteric region of the right proximal femur. PROCEDURE: After obtaining proper medical evaluation determining the patient was medically optimized for surgery, she was brought to the operating room and placed supine on the operating table. Induction of spinal anesthesia undertaken. 1 g IV Ancef was administered within 1 hr incision preoperatively. The patient was then positioned on the Oliver table, and all bony prominences were well padded. Fluoroscopic imaging was utilized to obtain AP and lateral views of the hip and to confirm reduction of the fracture. The operative extremity was then prepped and draped in usual sterile fashion using ChloraPrep. A surgical time-out was performed confirming patient identity surgical site and surgical procedure. A longitudinal incision was made in line with the femur proximal to the greater trochanter. Incision was carried through subcutaneous tissues. Gluteal fascia was split in line with surgical incision. The tip of the greater trochanter was palpated and the guide pin was then placed into the medial tip of the greater trochanter and advanced into the proximal femur. Correct position of the guide pin was confirmed with fluoroscopy in both the AP and lateral planes. This was then overdrilled with the starting Reamer. The guide pin was then removed. A short TFNA nail was then placed into the intramedullary canal of the femur and seated to the correct depth using fluoroscopic guidance. The triple trocar was then applied to the lateral femur, 10 blade incision through the skin and ITB band along the trocars to be opposed against the lateral cortex. This was confirmed fluoroscopically to be in appropriate position. The 3.2 mm guide pin was then placed and confirmed on AP and lateral views with the goal of center center position. The initial guide pin measured for a 100 mm lag screw. Guide pin was then overdrilled and a 100 mm lag screw was secured into position. The proximal nail locking screw was tightened down, a then backed off a 1/2 turn. We then turned our attention to placement of the the distal interlocking screw. The guide for the distal interlock screw was placed on the lateral cortex of the femur after making a small stab incision. The distal interlock hole was drilled with the 4.2 mm drill bit and filled with a distal interlock screw, which measured 38 mm. Final fluoroscopic images of the proximal femur were obtained in AP and lateral planes confirming anatomic reduction of the fracture and good placement of the nail and screws. At this stage, the wounds were thoroughly irrigated normal saline. Wound closure was performed with #1 Vicryl for the deep gluteal fascia, and IT band. 2-0 Vicryl, 2-0 Stratafix, and 4-0 Monocryl was utilized for subcutaneous and subcuticular closure. The patient was awoken from anesthesia and transferred to the PACU in stable condition. POSTOPERATIVE PLAN: 1. Patient will be readmitted to the hospitalist service for perioperative medical management. 2. Mobilize with physical therapy and occupational therapy. - Weight bear as tolerated right lower extremity. 3. Pain control: - Acetaminophen and Oxycodone for pain as needed. - IV pain medications for breakthrough pain - Ice for pain and swelling 4. Postoperative prophylactic antibiotics x2 doses 5. DVT prophylaxis: - resume warfarin postoperatively - Lovenox 40 mg daily until INR greater than 2.0 - SCDs bilateral lower extremities 6. Follow-up in Orthopedic Clinic in 2 weeks.
--- NOTE | 2024-10-06 11:06 | W.ANESCHARGE ---
Anesthesia Charges Start Date/Time Anesthesia Start Date: 10/06/24 Anesthesia Start Time: 08:56 Stop Date/Time Anesthesia Stop Date: 10/06/24 Anesthesia Stop Time: 11:03 Summary Emergency: STEAMTABLE WORKER
[2024-10-06] MEDS: HYDROmorphone 0.5 mg/0.5 ml inj IVP ×2 (12:59→14:06)
[2024-10-06] MEDS: ACETAMINOPHEN 325 MG TABLET 650 MG PO (13:00)
--- NOTE | 2024-10-06 13:14 | P.IMPN_ITS ---
Progress Note: A&P Assessment and plan (1) Closed fracture of right hip: Problem details: -CT scan right hip on 10/05/2024 revealed the following: Acute comminuted mildly displaced fracture of the right femur greater trochanter. The fracture line extends into the intertrochanteric region, but no extension is detected into the femoral neck or lesser trochanter. Mild degenerative change of the right hip. 10/06 POD#0 s/p Right intertrochanteric hip fracture fixation with cephalomedullary hip screw, Dr. Ramirez EBL 75 mL Continue pain management, PT/OT, weight-bearing as tolerated Okay to restart Coumadin tonight, enoxaparin therapeutic dosing b.i.d. 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 Last seizure when she was in her 20s. Continues to be on lifelong antiseizure medication. -continue with phenytoin 100 mg in the morning and 200 mg in the evening, seizure precautions Status: Acute (5) Anemia: Problem details: -may be result of fracture occurring 10/02, acute blood loss -10/05/2024 hemoglobin 10, MCV 99, MCH 32 -Previous hemoglobin 11.8, platelets 153 -iron 54, TIBC 215,% saturation 25, B12 194. Adding ferritin -monitor Status: Acute (6) Thrombocytopenia: Problem details: -10/05/2024 platelet count 121,000 -> 109 -monitor Status: Acute (7) Chronic anticoagulation: Problem details: -warfarin anticoagulation, INR goal 2-3 -10/05/2024 INR 2.5, hold warfarin, administer vitamin K 5 mg IV in preparation for orthopedic surgery on 10/06/2024 for closed hip fracture -pharmacy consultation placed to help with dosing of warfarin postop 10/06 INR 1.27. Okay to restart warfarin tonight per orthopedic surgery. 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 Status: Acute Time Spent With Patient Total time spent: Total time spent caring for the patient today was 45 minutes. This includes time spent for the visit reviewing the chart, time spent during the visit, time spent after the visit and documentation and planning in coordination of care. Subjective Date Seen: 10/06/24 Interval history: Patient is seen lying in bed this morning prior to surgery. Reports pain is manageable at this time. Denies headache or dizziness. Denies chest pain or shortness of breath. No events reported overnight. History of CVA in 2020 with residual mild dysarthria, mostly intermittent, impaired balance/gait. Denies upper extremity deficits. Exam Narrative: Exam Narrative: PHYSICAL EXAM General: Pleasant, conversant, NAD HEENT: Normocephalic, atraumatic, sclera white, EOMI, oral mucosa moist Cardiovascular: RRR, S1S2. No pitting edema Pulmonary: CTA bilaterally without rhonchi, rales, expiratory wheezes. No dyspnea Neurological: Alert, answering questions appropriately, cranial nerves intact, no focal findings Extremities: RLE mild external rotation and shortening. Neurovascularly intact Skin: Warm, dry. Const: Vital Signs, click to edit/add: Vital Signs - 24 hr 10/05/24 17:42 10/05/24 21:03 10/06/24 00:40 Temperature 99.1 F 98.6 F Pulse Rate Pulse Rate [Pulse Oximeter] 86 90 Respiratory Rate 16 18 Blood Pressure Blood Pressure [Ri ght Arm] 164/85 H 126/59 L Pulse Oximetry 97 96 95 Oxygen Delivery Me thod Room Air Room Air Room Air 10/06/24 00:40 10/06/24 05:14 10/06/24 07:00 Temperature 98.7 F 98.7 F Pulse Rate Pulse Rate [Pulse Oximeter] 87 78 Respiratory Rate 18 18 16 Blood Pressure Blood Pressure [Ri ght Arm] 140/69 H 136/63 Pulse Oximetry 95 97 Oxygen Delivery Me thod Room Air Room Air 10/06/24 07:38 10/06/24 07:45 10/06/24 10:58 Temperature 99.0 F 97.1 F L Pulse Rate 72 Pulse Rate [Pulse Oximeter] 84 Respiratory Rate 16 16 16 Blood Pressure 111/60 Blood Pressure [Ri ght Arm] 150/85 H Pulse Oximetry 95 95 98 Oxygen Delivery Me thod Room Air Room Air Room Air 10/06/24 11:05 10/06/24 11:10 10/06/24 11:15 Temperature 97.2 F L Pulse Rate 72 72 71 Pulse Rate [Pulse Oximeter] Respiratory Rate 14 16 16 Blood Pressure 115/64 119/60 111/58 L Blood Pressure [Ri ght Arm] Pulse Oximetry 98 99 99 Oxygen Delivery Me thod Room Air Room Air Room Air 10/06/24 11:20 10/06/24 11:25 10/06/24 11:29 Temperature 97.3 F L Pulse Rate 76 70 73 Pulse Rate [Pulse Oximeter] Respiratory Rate 18 14 14 Blood Pressure 110/62 118/59 L 126/61 Blood Pressure [Ri ght Arm] Pulse Oximetry 100 100 100 Oxygen Delivery Me thod Room Air Room Air Room Air 10/06/24 11:35 10/06/24 11:45 10/06/24 12:00 Temperature 96.4 F L 96.4 F L 97.2 F L Pulse Rate 74 76 79 Pulse Rate [Pulse Oximeter] Respiratory Rate 18 18 18 Blood Pressure 114/55 L 124/72 141/101 H Blood Pressure [Ri ght Arm] Pulse Oximetry 92 100 95 Oxygen Delivery Me thod Room Air Room Air Room Air 10/06/24 12:15 10/06/24 12:30 Temperature Pulse Rate 78 79 Pulse Rate [Pulse Oximeter] Respiratory Rate 18 18 Blood Pressure 148/71 H 156/83 H Blood Pressure [Ri ght Arm] Pulse Oximetry 98 94 Oxygen Delivery Me thod Room Air Labs Labs: Laboratory Results - last 24 hr 10/05/24 10/05/24 10/06/24 17:11 19:00 04:20 WBC 4.59 3.77 L RBC 3.24 L 2.83 L Hgb 10.4 L 9.1 L Hct 32.1 L 27.9 L MCV 99 99 MCH 32 32 MCHC 32 33 RDW Coeff of Dhiraj 12.9 Plt Count 121 L 109 L Neut % (Auto) 60.8 Lymph % (Auto) 26.1 [place] % (Auto) 9.6 Eos % (Auto) 3.1 Baso % (Auto) 0.4 Neut # (Auto) 2.79 Lymph # (Auto) 1.20 [place] # (Auto) 0.40 Eos # (Auto) 0.14 Baso # (Auto) 0.02 Abs Immat Gran (auto) 0.00 Imm/Tot Granulo (auto) 0.0 INR 2.51 H Sodium 136 135 Potassium 4.4 4.4 Chloride 106 108 Carbon Dioxide 26 23 Anion Gap 4 L 4 L BUN 19 22 Creatinine 0.6 0.5 Estimated Creat Clear 35.52 Estimated GFR 88 92 Glucose 102 96 Calcium 9.4 8.7 Iron 54 TIBC 215 L % Saturation 25 C-Reactive Protein 6.8 H Vitamin B12 194 L Urine Color Yellow Urine Appearance Clear Urine pH 5.5 Ur Specific [place] 1.015 Urine Protein Negative Urine Glucose (UA) Negative Urine Ketones Negative Urine Blood Trace-intact A Urine Nitrite Negative Urine Bilirubin Negative Urine Urobilinogen 0.2 Ur Leukocyte Esterase Negative Urine RBC 0-2 Urine WBC 0-2 Ur Squamous Epith Cells Few Urine Bacteria None 10/06/24 10/06/24 05:51 05:51 WBC RBC Hgb Hct MCV MCH MCHC RDW Coeff of Dhiraj Plt Count Neut % (Auto) Lymph % (Auto) [place] % (Auto) Eos % (Auto) Baso % (Auto) Neut # (Auto) Lymph # (Auto) [place] # (Auto) Eos # (Auto) Baso # (Auto) Abs Immat Gran (auto) Imm/Tot Granulo (auto) INR Cancelled 1.27 H Sodium Potassium Chloride Carbon Dioxide Anion Gap BUN Creatinine Estimated Creat Clear Estimated GFR Glucose Calcium Iron TIBC % Saturation C-Reactive Protein Vitamin B12 Urine Color Urine Appearance Urine pH Ur Specific [place] Urine Protein Urine Glucose (UA) Urine Ketones Urine Blood Urine Nitrite Urine Bilirubin Urine Urobilinogen Ur Leukocyte Esterase Urine RBC Urine WBC Ur Squamous Epith Cells Urine Bacteria
[2024-10-06] MEDS: CEFAZOLIN 1 GM in 0.9 % SODIUM CHLORIDE Mini-bag 100 ML IVPB (16:01)
[2024-10-06] MEDS: WARFARIN 2 MG TABLET 4 MG PO (17:35)
[2024-10-06] MEDS: OXYCODONE 5 MG TABLET PO ×2 (17:37→21:16)
--- NOTE | 2024-10-06 18:47 | PC.NURSE ---
End of shift-- Very pleasant and cooperative, alert and oriented patient went to surgery at about 0900 and returned from PACU at 1135. VSS, though occasionally hypertensive, and pt is afebrile. SPO2 dropped as low as 86% on RA after pain meds and O2 was applied briefly at 1L per n.c. Otherwise maintained >90% on RA. Pt c/o back pain which she rated as high as 8 out of 10 and was given Tylenol, Dilaudid x2 and an Aqua K pad and stated relief. Pain is currently well managed with Oxycodone, Tylenol, an ice pack and an aqua K pad. Dressing to right hip is C/D/I and CMS is WNL. LS CTA. She denied nausea and ate half a grilled cheese sandwich and an ice cream this evening without difficulty. She was turned and repositioned only this shift r/t back pain and her declining the offer this evening. Gomez is patent and drained approximately 500ml of clear, yellow urine this evening. and son were at bedside this afternoon and appear loving and supportive.
[2024-10-06] MEDS: ATORVASTATIN 10 MG TABLET 20 MG PO (21:02)
[2024-10-06] MEDS: SENNOSIDES 1 TAB TABLET 2 TAB PO (21:02)
[2024-10-06] MEDS: PHENYTOIN EXTENDED RELEASE 100 MG CAPSULE 200 MG PO (21:03)
[2024-10-06] MEDS: carvediloL 6.25 MG TABLET PO (21:03)
[2024-10-07] VITALS (7 sets, daily range): BP systolic 97–149; BP diastolic 49–74; PULSE 82–110; RESP 16–20; TEMP 37–37.9; O2SAT 90–99
[2024-10-07] MEDS: CEFAZOLIN 1 GM in 0.9 % SODIUM CHLORIDE Mini-bag 100 ML IVPB (00:59)
--- NOTE | 2024-10-07 04:51 | PC.NURSE ---
Pt pleasant and cooperatve, VSS She has not been up yet and refuses. Have been turning and reposition. Drsg is CDI no draninage noted. Pain med x1this shift. CMS is intact.
[2024-10-07] MEDS: OMEPRAZOLE 20 MG CAPSULE DR 40 MG PO (06:40)
[2024-10-07 07:12] LABS: Hematocrit 27.9 % (33.0-51.0); Hemoglobin* 9.1 gm/dL (12.0-16.0); Mean Corpuscular HGB Conc 33 gm/dL (32-36); Mean Corpuscular Hemoglobin 32 pg (26-34); Mean Corpuscular Volume 99 fL (80-100); Platelet Count* 118 K/uL (140-440); Red Blood Count 2.83 m/uL (4.00-5.20)
[2024-10-07 07:13] LABS: Slide Review Reflex No
[2024-10-07 07:21] LABS: INR 1.16 (0.91-1.10); Prothrombin Time 15.6 Seconds
[2024-10-07] MEDS: PHENYTOIN EXTENDED RELEASE 100 MG CAPSULE PO (08:16)
[2024-10-07] MEDS: SENNOSIDES 1 TAB TABLET 2 TAB PO ×2 (08:16→21:01)
[2024-10-07] MEDS: carvediloL 6.25 MG TABLET PO ×2 (08:16→21:02)
[2024-10-07] MEDS: ACETAMINOPHEN 325 MG TABLET 650 MG PO ×2 (08:17→16:03)
[2024-10-07] MEDS: OXYCODONE 5 MG TABLET PO ×3 (08:17→21:07)
[2024-10-07] MEDS: ENOXAPARIN 40 MG/0.4 ML INJ SUBCUT ×2 (11:14→21:02)
[2024-10-07] MEDS: SODIUM CHLORIDE 0.9 % (FLUSH) 10 ML SYRINGE 5 ML IVF ×2 (11:15→21:09)
--- NOTE | 2024-10-07 11:39 | PM.IMPN1 ---
Progress Note: A&P Assessment and plan (1) Closed fracture of right hip: Problem details: -CT scan right hip on 10/05/2024 revealed the following: Acute comminuted mildly displaced fracture of the right femur greater trochanter. The fracture line extends into the intertrochanteric region, but no extension is detected into the femoral neck or lesser trochanter. Mild degenerative change of the right hip. S/p Right intertrochanteric hip fracture fixation with cephalomedullary hip screw, Dr. Ramirez, 10/06/24 EBL 75 mL Continue pain management, PT/OT, weight-bearing as tolerated Coumadin has been restarted, followed by Pharmacy, bridging with enoxaparin b.i.d. 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 Last seizure when she was in her 20s. Continues to be on lifelong antiseizure medication. -continue with phenytoin 100 mg in the morning and 200 mg in the evening, seizure precautions Status: Acute (5) Anemia: Problem details: -may be result of fracture occurring 10/02, acute blood loss - pt did not seek evaluation in ED until 10/05 -10/05/2024 hemoglobin 10, MCV 99, MCH 32 -Previous hemoglobin 11.8, platelets 153 -iron 54, TIBC 215,% saturation 25, B12 194. Ferritin 29 -stable, continue to monitor post operatively Status: Acute (6) Thrombocytopenia: Problem details: -10/05/2024 platelet count 121,000 -> 109 -> 118 -monitoring Status: Acute (7) Chronic anticoagulation: Problem details: -warfarin anticoagulation, INR goal 2-3 -10/05/2024 INR 2.5, hold warfarin, administer vitamin K 5 mg IV in preparation for orthopedic surgery on 10/06/2024 for closed hip fracture -pharmacy consultation placed to help with dosing of warfarin postop 10/06 INR 1.27. Okay to restart warfarin tonight per orthopedic surgery. As discussed with Pharmacy, will start therapeutic dosing enoxaparin 10/07 for bridging given embolic history 10/07 INR 1.16, downtrending as suspected following Vit K preoperatively. 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 therapeutic dosing Status: Acute Plan Continue PT and OT. Will have director social welfare assist tomorrow in finding SNF placement Time Spent With Patient Total time spent: Total time spent caring for the patient today was 45 minutes. This includes time spent for the visit reviewing the chart, time spent during the visit, time spent after the visit and documentation and planning in coordination of care. Subjective Date Seen: 10/07/24 Interval history: Patient is seen sitting up in a chair this morning. Reports feeling very well. Has very little pain postoperatively. Has been working with therapies this morning. Denies headache or dizziness. Denies chest pain or shortness of breath. Tolerating orals without nausea vomiting. Current plan is for patient to transition to SNF prior to returning home postoperatively. Exam Narrative: Exam Narrative: PHYSICAL EXAM General: Pleasant, conversant, NAD HEENT: Normocephalic, atraumatic, sclera white, EOMI, oral mucosa moist Cardiovascular: RRR, S1S2. No pitting edema Pulmonary: CTA bilaterally without rhonchi, rales, expiratory wheezes. No dyspnea Neurological: Alert, answering questions appropriately, cranial nerves intact, no focal findings Extremities: Postoperative dressing in place, dry without drainage. Neurovascularly intact Skin: Warm, dry. Const: Vital Signs, click to edit/add: Vital Signs - 24 hr 10/06/24 11:45 10/06/24 12:00 10/06/24 12:15 Temperature 96.4 F L 97.2 F L Pulse Rate 76 79 78 Pulse Rate [Pulse Oximeter] Pulse Rate [Right Dorsalis Pedis] Respiratory Rate 18 18 18 Blood Pressure 124/72 141/101 H 148/71 H Blood Pressure [Le ft Arm] Blood Pressure [Ri ght Arm] Pulse Oximetry 100 95 98 Oxygen Delivery Me thod Room Air Room Air Oxygen Flow Rate 10/06/24 12:30 10/06/24 13:00 10/06/24 13:30 Temperature 98.2 F Pulse Rate 79 87 Pulse Rate [Pulse Oximeter] Pulse Rate [Right Dorsalis Pedis] Respiratory Rate 18 18 Blood Pressure 156/83 H 174/78 H Blood Pressure [Le ft Arm] Blood Pressure [Ri ght Arm] Pulse Oximetry 94 88 Oxygen Delivery Me thod Room Air Room Air Room Air Oxygen Flow Rate 10/06/24 14:30 10/06/24 15:00 10/06/24 15:00 Temperature 98.2 F 98.2 F Pulse Rate 88 Pulse Rate [Pulse Oximeter] 88 Pulse Rate [Right Dorsalis Pedis] Respiratory Rate 18 18 18 Blood Pressure 162/80 H Blood Pressure [Le ft Arm] Blood Pressure [Ri ght Arm] 163/80 H Pulse Oximetry 98 98 98 Oxygen Delivery Me thod Nasal Cannula Nasal Cannula Nasal Cannula Oxygen Flow Rate 2 1 1 10/06/24 15:00 10/06/24 15:00 10/06/24 16:00 Temperature 98.2 F Pulse Rate 88 100 Pulse Rate [Pulse Oximeter] 88 Pulse Rate [Right Dorsalis Pedis] Respiratory Rate 18 16 16 Blood Pressure 163/80 H 131/80 Blood Pressure [Le ft Arm] Blood Pressure [Ri ght Arm] Pulse Oximetry 99 94 Oxygen Delivery Me thod Nasal Cannula Nasal Cannula Oxygen Flow Rate 1 1 10/06/24 17:00 10/06/24 20:27 10/06/24 20:31 Temperature 98.2 F Pulse Rate 86 Pulse Rate [Pulse Oximeter] 82 82 Pulse Rate [Right Dorsalis Pedis] Respiratory Rate 16 16 Blood Pressure 145/71 H Blood Pressure [Le ft Arm] Blood Pressure [Ri ght Arm] 126/56 L Pulse Oximetry 95 99 Oxygen Delivery Me thod Nasal Cannula Room Air Oxygen Flow Rate 1 10/06/24 23:08 10/06/24 23:21 10/07/24 03:00 Temperature 99.6 F 98.6 F Pulse Rate Pulse Rate [Pulse Oximeter] 89 110 H Pulse Rate [Right Dorsalis Pedis] Respiratory Rate 20 20 Blood Pressure Blood Pressure [Le ft Arm] Blood Pressure [Ri ght Arm] 118/66 120/59 L Pulse Oximetry 93 93 Oxygen Delivery Me thod Room Air Room Air Room Air Oxygen Flow Rate 10/07/24 07:00 10/07/24 07:00 10/07/24 07:00 Temperature 99.8 F H Pulse Rate Pulse Rate [Pulse Oximeter] 90 90 Pulse Rate [Right Dorsalis Pedis] Respiratory Rate 18 18 18 Blood Pressure Blood Pressure [Le ft Arm] Blood Pressure [Ri ght Arm] 122/61 Pulse Oximetry 90 90 Oxygen Delivery Me thod Room Air Oxygen Flow Rate 10/07/24 11:00 Temperature 99.7 F H Pulse Rate Pulse Rate [Pulse Oximeter] Pulse Rate [Right Dorsalis Pedis] 82 Respiratory Rate 16 Blood Pressure Blood Pressure [Le ft Arm] 97/52 L Blood Pressure [Ri ght Arm] 107/49 L Pulse Oximetry 96 Oxygen Delivery Me thod Room Air Oxygen Flow Rate Labs Labs: Laboratory Results - last 24 hr 10/06/24 10/06/24 10/07/24 05:51 14:36 06:08 WBC 4.50 RBC 2.83 L Hgb 9.1 L Hct 27.9 L MCV 99 MCH 32 MCHC 33 Plt Count 118 L INR 1.16 H Ferritin 29.0 Lab Acknowledgement Test Added
--- NOTE | 2024-10-07 11:48 | PM.ORPN ---
Subjective Subjective Date Seen: 10/07/24 Principal diagnosis: Status post righ intertrochanteric hip fracture fixation with IM nail Interval history: Patient reports doing well. Her biggest concern was back discomfort that has been remedied with heating pad. No acute events over night. Pain managed with scheduled and PRN medications, ice. DVT prophylaxis: Coumadin which was restarted last night, bridging with enoxaparin 40 mg twice daily due to history of embolic stroke, SCDs, Filipe socks, ambulation. Will drop to 40 mg aspirin once daily once INR is in therapeutic range. Denies fevers, chills, aches, N/V, CP, SOB/FUNK, or lightheadedness. Reports no flat this to date, nor over the last couple days. She feels SNF will be the best option at discharge. Ortho Exam Narrative Exam Narrative: -Patient appears comfortable in recliner; no apparent acute distress -Alert and oriented times 3 -Operative hip mild swelling; soft tissues supple; no obvious erythema. No notable ecchymosis. Warmth appropriate -Surgical dressings clean, dry, intact; no obvious drainage, no erythematous streaking peripheral to the bandage -Bilateral calves soft and supple; no significant swelling, edema, tenderness, erythema, discoloration, warmth, or palpable cords -2+ DP/PT pulses, intact dermatomes and myotomes distally (5/5 strength). Const Vital Signs, click to edit/add: Vital Signs - 24 hr 10/06/24 12:00 10/06/24 12:15 10/06/24 12:30 Temperature 97.2 F L Pulse Rate 79 78 79 Pulse Rate [Pulse Oximeter] Pulse Rate [Right Dorsalis Pedis] Respiratory Rate 18 18 18 Blood Pressure 141/101 H 148/71 H 156/83 H Blood Pressure [Left Arm] Blood Pressure [Right Arm] Pulse Oximetry 95 98 94 Oxygen Delivery Method Room Air Room Air Oxygen Flow Rate 10/06/24 13:00 10/06/24 13:30 10/06/24 14:30 Temperature 98.2 F 98.2 F Pulse Rate 87 88 Pulse Rate [Pulse Oximeter] Pulse Rate [Right Dorsalis Pedis] Respiratory Rate 18 18 Blood Pressure 174/78 H 162/80 H Blood Pressure [Left Arm] Blood Pressure [Right Arm] Pulse Oximetry 88 98 Oxygen Delivery Method Room Air Room Air Nasal Cannula Oxygen Flow Rate 2 10/06/24 15:00 10/06/24 15:00 10/06/24 15:00 Temperature 98.2 F Pulse Rate Pulse Rate [Pulse Oximeter] 88 88 Pulse Rate [Right Dorsalis Pedis] Respiratory Rate 18 18 18 Blood Pressure Blood Pressure [Left Arm] Blood Pressure [Right Arm] 163/80 H Pulse Oximetry 98 98 Oxygen Delivery Method Nasal Cannula Nasal Cannula Oxygen Flow Rate 1 1 10/06/24 15:00 10/06/24 16:00 10/06/24 17:00 Temperature 98.2 F Pulse Rate 88 100 86 Pulse Rate [Pulse Oximeter] Pulse Rate [Right Dorsalis Pedis] Respiratory Rate 16 16 16 Blood Pressure 163/80 H 131/80 145/71 H Blood Pressure [Left Arm] Blood Pressure [Right Arm] Pulse Oximetry 99 94 95 Oxygen Delivery Method Nasal Cannula Nasal Cannula Nasal Cannula Oxygen Flow Rate 1 1 1 10/06/24 20:27 10/06/24 20:31 10/06/24 23:08 Temperature 98.2 F Pulse Rate Pulse Rate [Pulse Oximeter] 82 82 Pulse Rate [Right Dorsalis Pedis] Respiratory Rate 16 Blood Pressure Blood Pressure [Left Arm] Blood Pressure [Right Arm] 126/56 L Pulse Oximetry 99 Oxygen Delivery Method Room Air Room Air Oxygen Flow Rate 10/06/24 23:21 10/07/24 03:00 10/07/24 07:00 Temperature 99.6 F 98.6 F 99.8 F H Pulse Rate Pulse Rate [Pulse Oximeter] 89 110 H 90 Pulse Rate [Right Dorsalis Pedis] Respiratory Rate 20 20 18 Blood Pressure Blood Pressure [Left Arm] Blood Pressure [Right Arm] 118/66 120/59 L 122/61 Pulse Oximetry 93 93 90 Oxygen Delivery Method Room Air Room Air Oxygen Flow Rate 10/07/24 07:00 10/07/24 07:00 10/07/24 11:00 Temperature 99.7 F H Pulse Rate Pulse Rate [Pulse Oximeter] 90 Pulse Rate [Right Dorsalis Pedis] 82 Respiratory Rate 18 18 16 Blood Pressure Blood Pressure [Left Arm] 97/52 L Blood Pressure [Right Arm] 107/49 L Pulse Oximetry 90 96 Oxygen Delivery Method Room Air Room Air Oxygen Flow Rate Assessment and Plan Assessment and plan (1) Closed fracture of right hip: Problem details: -CT scan right hip on 10/05/2024 revealed the following: Acute comminuted mildly displaced fracture of the right femur greater trochanter. The fracture line extends into the intertrochanteric region, but no extension is detected into the femoral neck or lesser trochanter. Mild degenerative change of the right hip. S/p Right intertrochanteric hip fracture fixation with cephalomedullary hip screw, Dr. Ramirez, 10/06/24 EBL 75 mL Continue pain management, PT/OT, weight-bearing as tolerated Coumadin has been restarted, followed by Pharmacy, bridging with enoxaparin b.i.d. 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 Last seizure when she was in her 20s. Continues to be on lifelong antiseizure medication. -continue with phenytoin 100 mg in the morning and 200 mg in the evening, seizure precautions Status: Acute (5) Anemia: Problem details: -may be result of fracture occurring 10/02, acute blood loss - pt did not seek evaluation in ED until 10/05 -10/05/2024 hemoglobin 10, MCV 99, MCH 32 -Previous hemoglobin 11.8, platelets 153 -iron 54, TIBC 215,% saturation 25, B12 194. Ferritin 29 -stable, continue to monitor post operatively Status: Acute (6) Thrombocytopenia: Problem details: -10/05/2024 platelet count 121,000 -> 109 -> 118 -monitoring Status: Acute (7) Chronic anticoagulation: Problem details: -warfarin anticoagulation, INR goal 2-3 -10/05/2024 INR 2.5, hold warfarin, administer vitamin K 5 mg IV in preparation for orthopedic surgery on 10/06/2024 for closed hip fracture -pharmacy consultation placed to help with dosing of warfarin postop 10/06 INR 1.27. Okay to restart warfarin tonight per orthopedic surgery. As discussed with Pharmacy, will start therapeutic dosing enoxaparin 10/07 for bridging given embolic history 10/07 INR 1.16, downtrending as suspected following Vit K preoperatively. 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 therapeutic dosing Status: Acute Plan - Complete 23 hour perioperative antibiotics. - PT/OT consult for education and assistance. - Social work consult for discharge planning - SNF will be needed. - Prescribed analgesics as needed - she will likely not need frequent narcotics - DVT prophylaxis: Restart Coumadin last night 09/28/2024, bridging with 40 mg enoxaparin twice daily, Filipe socks, walking, and SCDs - Anticipation is for discharge to SNF once patient is optimized, safe mobilization, and SNF location is found.
[2024-10-07] MEDS: WARFARIN 2 MG TABLET 4 MG PO (17:44)
--- NOTE | 2024-10-07 19:58 | PC.NURSE ---
End of shift-- Pleasant and cooperative, alert and oriented patient. VSS and highest temp today was 100.2F. SpO2 maintained >90% on RA. Pain appears well managed with Oxycodone and Tylenol. Dressing to right hip is C/D/I and CMS WNL. LS CTA. She denied nausea and ate 50-75% of two small meals today. BS+ x4 and pt is passing flatus. Gomez was removed and pt has voided since. Urine output borderline low and pt was encouraged to drink fluids. She was up to the chair and the commode today with assist of 1, belt and walker and tolerated it fairly well. Report to JAMIE Valdez.
[2024-10-07] MEDS: PHENYTOIN EXTENDED RELEASE 100 MG CAPSULE 200 MG PO (21:01)
[2024-10-07] MEDS: ATORVASTATIN 10 MG TABLET 20 MG PO (21:01)
[2024-10-08 03:00] VITALS: BP 133/60; PULSE 98; RESP 20; TEMP 37.1; O2SAT 97
[2024-10-08 06:49] LABS: Hematocrit 25.8 % (33.0-51.0); Hemoglobin* 8.6 gm/dL (12.0-16.0); Mean Corpuscular HGB Conc 33 gm/dL (32-36); Mean Corpuscular Hemoglobin 33 pg (26-34); Mean Corpuscular Volume 97 fL (80-100); Platelet Count* 113 K/uL (140-440); Red Blood Count 2.65 m/uL (4.00-5.20); White Blood Count* 4.28 K/uL (4.50-11.00)
[2024-10-08 06:53] LABS: Slide Review Reflex No
[2024-10-08 07:07] LABS: Chloride* 104 mmol/L (96-114); Potassium* 4.3 mmol/L (3.6-5.1); Sodium* 131 mmol/L (135-149)
[2024-10-08 07:08] LABS: INR 1.85 (0.91-1.10); Prothrombin Time 22.6 Seconds
[2024-10-08 07:10] LABS: Anion Gap 4 mEq/L (7-15); Blood Urea Nitrogen* 20 mg/dL (7-30); Carbon Dioxide* 23 mmol/L (20-32); Creatinine* 0.8 mg/dL (0.5-1.5); Est. Creatinine Clearance* 35.52; Estimated Glomerular Filt Rate 72 ml/min
[2024-10-08 07:11] LABS: Calcium* 8.5 mg/dL (8.4-10.6); Glucose* 99 mg/dL (60-115)
[2024-10-08 07:25] VITALS: BP 123/59; PULSE 82; RESP 20; TEMP 37.8; O2SAT 97
[2024-10-08] MEDS: OMEPRAZOLE 20 MG CAPSULE DR 40 MG PO (07:31)
[2024-10-08] MEDS: ACETAMINOPHEN 325 MG TABLET 650 MG PO (08:45)
[2024-10-08] MEDS: SODIUM CHLORIDE 0.9 % (FLUSH) 10 ML SYRINGE 5 ML IVF (08:48)
[2024-10-08] MEDS: PHENYTOIN EXTENDED RELEASE 100 MG CAPSULE PO (08:48)
[2024-10-08] MEDS: carvediloL 6.25 MG TABLET PO (08:48)
[2024-10-08] MEDS: SENNOSIDES 1 TAB TABLET 2 TAB PO (08:48)
--- NOTE | 2024-10-08 09:36 | P.ORPN_ITS ---
Subjective Subjective Time Seen by Provider: 08:30 Date Seen: 10/08/24 Principal diagnosis: POD 2 right intertrochanteric hip fracture fixation with IM nail Interval history: Patient reports doing okay. States she is having a difficult time explaining her pain, location, and why she does not want to move/ambulate. She cannot clearly explain that it is her right hip that bothers her when moving. States that she is having a difficult time explaining her pain and location of pain. Notes that her back discomfort is now resolved after heating pad. No acute events over night. Pain managed with scheduled and PRN medications, ice. She is not receiving frequent oxycodone. DVT prophylaxis: Coumadin, and Lovenox 40 mg b.i.d. bridging due to history of embolic stroke in 2020, SCDs, 10 socks, walking (albeit limited per patient refusal). Denies fevers, chills, aches, N/V, CP, SOB/FUNK, or lightheadedness. Denies acute cough. She has a chronic, nonproductive cough. States stroke 2020. At that time, there were no outward signs of stroke aside from being unable to express her words to her . This stroke impacted her right side, slight right foot drop. Since stroke, she occasionally feels tongue-tied with communication, and has to slow down her speech. Otherwise, is able to communicate okay with family and friends prior to this hospital stay. Ortho Exam Narrative Exam Narrative: -Patient appears comfortable in recliner; no apparent acute distress -Alert and oriented times 3 -Operative hip mildly swollen; soft tissues supple; no obvious erythema. Ecchymosis minimal. Warmth appropriate. No obvious hematoma. -Surgical dressings clean, dry, intact; no obvious drainage, no erythematous streaking peripheral to the bandage -Bilateral calves soft and supple; no significant swelling, edema, erythema, discoloration, warmth, or palpable cords. Mildly tender to palpation along the bilateral calves; nontender posterior knees or upper leg. -2+ DP/PT pulses, intact dermatomes and myotomes distally (5/5 strength). -patient demonstrates some expressive aphasia, and at times seems frustrated with word-finding -mildly asymmetric smile Const Vital Signs, click to edit/add: Vital Signs - 24 hr 10/07/24 11:00 10/07/24 15:00 10/07/24 15:00 Temperature 99.7 F H 100.2 F H Pulse Rate [Pulse Oximeter] 93 Pulse Rate [Right Dorsalis Pedis] 82 Respiratory Rate 16 16 16 Blood Pressure [Left Arm] 97/52 L 149/66 H Blood Pressure [Right Arm] 107/49 L Pulse Oximetry 96 98 98 Oxygen Delivery Method Room Air Room Air Room Air 10/07/24 15:00 10/07/24 16:03 10/07/24 19:00 Temperature 100.2 F H 98.9 F Pulse Rate [Pulse Oximeter] 93 94 Pulse Rate [Right Dorsalis Pedis] 82 Respiratory Rate 16 20 Blood Pressure [Left Arm] 120/74 Blood Pressure [Right Arm] Pulse Oximetry 99 Oxygen Delivery Method Room Air 10/07/24 23:36 10/07/24 23:36 10/08/24 03:00 Temperature 100 F H 98.8 F Pulse Rate [Pulse Oximeter] 96 98 Pulse Rate [Right Dorsalis Pedis] Respiratory Rate 20 20 20 Blood Pressure [Left Arm] 121/62 133/60 Blood Pressure [Right Arm] Pulse Oximetry 97 97 Oxygen Delivery Method Room Air Room Air Room Air Assessment and Plan Assessment and plan (1) Closed fracture of right hip: Problem details: -CT scan right hip on 10/05/2024 revealed the following: Acute comminuted mildly displaced fracture of the right femur greater trochanter. The fracture line extends into the intertrochanteric region, but no extension is detected into the femoral neck or lesser trochanter. Mild degenerative change of the right hip. S/p Right intertrochanteric hip fracture fixation with cephalomedullary hip sc rew, Dr. 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 Last seizure when she was in her 20s. Continues to be on lifelong antiseizure medication. -continue with phenytoin 100 mg in the morning and 200 mg in the evening, seizure precautions Status: Acute (5) Anemia: Problem details: -may be result of fracture occurring 10/02, acute blood loss - pt did not seek evaluation in ED until 10/05 -10/05/2024 hemoglobin 10, MCV 99, MCH 32 -Previous hemoglobin 11.8, platelets 153 -iron 54, TIBC 215,% saturation 25, B12 194. Ferritin 29 -stable, continue to monitor post operatively Status: Acute (6) Thrombocytopenia: Problem details: -10/05/2024 platelet count 121,000 -> 109 -> 118 -monitoring Status: Acute (7) Chronic anticoagulation: Problem details: -warfarin anticoagulation, INR goal 2-3 -10/05/2024 INR 2.5, hold warfarin, administer vitamin K 5 mg IV in preparation for orthopedic surgery on 10/06/2024 for closed hip fracture -pharmacy consultation placed to help with dosing of warfarin postop 10/06 INR 1.27. Okay to restart warfarin tonight per orthopedic surgery. As discussed with Pharmacy, will start therapeutic dosing enoxaparin 10/07 for bridging given embolic history 10/07 INR 1.16, downtrending as suspected following Vit K preoperatively. Pharmacy managing 10/08 INR 1.85; will be discharged to SNF today, 10/08/2024 on Coumadin; no further enoxaparin bridging Status: Acute (8) Hyperlipidemia: Problem details: Continue statin Status: Acute (9) Essential hypertension: Problem details: Continue carvedilol Status: Acute (10) History of embolic stroke: Problem details: 2020 Restart Coumadin 10/06, bridging with enoxaparin b.i.d. therapeutic dosing Status: Acute Plan - PT/OT consult for education and assistance - strongly encouraged patient to be up and moving with help, ambulating in hallways of possible with PT. - Social work consult for discharge planning - recommend SNF - Prescribed analgesics as needed - limit oxycodone administration - DVT prophylaxis: Coumadin with enoxaparin bridging, walking, Filipe socks and SCDs - Spoke with hospitalist regarding patient's expressive aphasia; hospitalist has been with the patient her entire stay here and feels that patient is at baseline. - Anticipation is for discharge to SNF today, [facility] 10/08/24 if the patient remains medically stable, pain is controlled, and they are safe with mobilization.
[2024-10-08 11:00] VITALS: BP 133/63; PULSE 84; RESP 20; TEMP 36.8; O2SAT 94
[2024-10-08] MEDS: ENOXAPARIN 40 MG/0.4 ML INJ SUBCUT (11:07)
--- NOTE | 2024-10-08 12:52 | P.DS_ITS ---
DS: Providers Provider Date Seen: 10/08/24 Date of admission: 10/05/24 17:37 Primary care physician: Not a Local Provider Admitting Clinician: Zacarias Kramer MD Consults: 10/05/24 17:37 Consult to Occupational Therapy [CONS] Routine Comment: Reason(s) for OT Consult:: Evaluate and Treat Any Restrictions?:: No Restrictions Consult to Physical Therapy [CONS] Routine Comment: Reason(s) for PT Consult:: Evaluate and Treat Any Restrictions?:: No Restrictions Consult to Physician [CONS] Urgent Comment: Consulting Provider: Memo Ramirez Has provider been notified: Yes Consult to Apprentice Painter Brush [CONS] Routine Comment: Reason for Consult:: Discharge Planning Needs 10/07/24 17:47 Consult to Occupational Therapy [CONS] Routine Comment: Reason(s) for OT Consult:: Evaluate and Treat Any Restrictions?:: Wt Bearing as Tolerated Consult to Physical Therapy [CONS] Routine Comment: Reason(s) for PT Consult:: Evaluate and Treat Any Restrictions?:: Wt Bearing as Tolerated Attending Physician on discharge: Courtney Baum [facility], PA-C [facility] Date of Discharge: 10/08/24 DS: Diagnosis Discharge Diagnosis (1) Closed fracture of right hip: Status: Acute Problem details: -CT scan right hip on 10/05/2024 revealed the following: Acute comminuted mildly displaced fracture of the right femur greater trochanter. The fracture line extends into the intertrochanteric region, but no extension is detected into the femoral neck or lesser trochanter. Mild degenerative change of the right hip. S/p Right intertrochanteric hip fracture fixation with cephalomedullary hip screw, Dr. Ramirez, 10/06/24 EBL 75 mL Continue pain management, PT/OT, weight-bearing as tolerated Coumadin has been restarted, followed by Pharmacy; bridging with enoxaparin has now complete Patient is discharged to [facility] for ongoing rehab prior to returning home. Postoperative cares as per Orthopedic surgery. Continue Coumadin. Outpatient follow-up at Orthopedic Clinic in 2 weeks. 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 (4) Seizure disorder: Status: Acute Problem details: -onset as a young girl. Last seizure when she was in her 20s. Continues to be on lifelong antiseizure medication. Continued with phenytoin 100 mg in the morning and 200 mg in the evening, seizure precautions (5) Anemia: Status: Acute Problem details: -may be result of fracture occurring 10/02, acute blood loss - pt did not seek evaluation in ED until 10/05 -10/05/2024 hemoglobin 10, MCV 99, MCH 32 -Previous hemoglobin 11.8, platelets 153 -iron 54, TIBC 215,% saturation 25, B12 194. Ferritin 29 Stable postoperatively, hemoglobin 8.6 at time of discharge. Is anticoagulated. Consider recheck hemoglobin in 1 week. (6) Thrombocytopenia: Status: Acute Problem details: -10/05/2024 platelet count 121,000 -> 109 -> 118 Platelets stable postoperatively, 113 at time of discharge. Consider recheck in 1 week (7) Chronic anticoagulation: Status: Acute Problem details: -warfarin anticoagulation, INR goal 2-3 -10/05/2024 INR 2.5, hold warfarin, administer vitamin K 5 mg IV in preparation for orthopedic surgery on 10/06/2024 for closed hip fracture -pharmacy consultation placed to help with dosing of warfarin postop 10/06 INR 1.27. Okay to restart warfarin tonight per orthopedic surgery. As discussed with Pharmacy, will start therapeutic dosing enoxaparin 10/07 for bridging given embolic history 10/07 INR 1.16, downtrending as suspected following Vit K preoperatively. Pharmacy managing 10/08 INR 1.85; will be discharged to SNF today, 10/08/2024 on Coumadin 4 mg nightly; no further enoxaparin bridging. Recheck INR 10/10/2024 (8) Hyperlipidemia: Status: Acute Problem details: Continue statin (9) Essential hypertension: Status: Acute Problem details: Continue carvedilol (10) History of embolic stroke: Status: Acute Problem details: 2020 Restart Coumadin 10/06, bridging with enoxaparin b.i.d. therapeutic dosing Discharged on Coumadin 4 mg nightly, recheck INR 10/10/2024 DS: Summary Hospital Course Hospital Course: 84 year old female was admitted to the medical floor for surgical repair right hip fracture. Course of care and details as noted above. DOS 10/06/2024. PT/OT postoperatively, recommending acute rehab prior to returning home. Discharged to [facility]. Continue anticoagulation with INR check on 10/10/2024. Remainder of chronic medical comorbidities were monitored and managed with home medications. Status at Discharge Functional status at discharge: uses cane/walker Overall status at discharge: patient is progressing back to baseline Time Spent with Patient Time attestation: Total time spent providing and/or coordinating discharge services: Time spent: Greater than 30 minutes Exam Narrative: Exam Narrative: PHYSICAL EXAM General: Pleasant, conversant, NAD Cardiovascular: RRR Pulmonary: No dyspnea Neurological: Alert, answering questions appropriately, no focal deficits noted. Chronic intermittent dysarthria Skin: Warm, dry. Const: Vital Signs, click to edit/add: Vital Signs - 24 hr 10/07/24 15:00 10/07/24 15:00 10/07/24 15:00 Temperature 100.2 F H Pulse Rate [Pulse Oximeter] 93 93 Pulse Rate [Right Dorsalis Pedis] 82 Respiratory Rate 16 16 16 Blood Pressure [Le ft Arm] 149/66 H Blood Pressure [Ri ght Arm] Pulse Oximetry 98 98 Oxygen Delivery Me thod Room Air Room Air 10/07/24 16:03 10/07/24 19:00 10/07/24 23:36 Temperature 100.2 F H 98.9 F Pulse Rate [Pulse Oximeter] 94 Pulse Rate [Right Dorsalis Pedis] Respiratory Rate 20 20 Blood Pressure [Le ft Arm] 120/74 Blood Pressure [Ri ght Arm] Pulse Oximetry 99 Oxygen Delivery Oh thod Room Air Room Air 10/07/24 23:36 10/08/24 03:00 10/08/24 07:25 Temperature 100 F H 98.8 F Pulse Rate [Pulse Oximeter] 96 98 Pulse Rate [Right Dorsalis Pedis] Respiratory Rate 20 20 20 Blood Pressure [Le ft Arm] 121/62 133/60 Blood Pressure [Ri ght Arm] Pulse Oximetry 97 97 97 Oxygen Delivery Me thod Room Air Room Air Room Air 10/08/24 07:25 10/08/24 11:00 Temperature 100.1 F H 98.3 F Pulse Rate [Pulse Oximeter] 82 84 Pulse Rate [Right Dorsalis Pedis] Respiratory Rate 20 20 Blood Pressure [Le ft Arm] 123/59 L Blood Pressure [Ri ght Arm] 133/63 Pulse Oximetry 97 94 Oxygen Delivery Me thod Room Air Room Air DS: Data Data Completed and Pending Labs on day of discharge: Labs from last 24 hours 10/08/24 06:22 WBC 4.28 L RBC 2.65 L Hgb 8.6 L Hct 25.8 L MCV 97 MCH 33 MCHC 33 Plt Count 113 L INR 1.85 H Sodium 131 L Potassium 4.3 Chloride 104 Carbon Dioxide 23 Anion Gap 4 L BUN 20 Creatinine 0.8 Estimated Creat Clear 35.52 Estimated GFR 72 Glucose 99 Calcium 8.5 Imaging Femur x-ray: Attestation: I have reviewed the pertinent imaging results. Radiologist's impression: IMPRESSION: Fluoroscopic guidance for open reduction internal fixation of proximal femoral fracture. Hip x-ray: Attestation: I have reviewed the pertinent imaging results. Radiologist's impression: ----- ADDENDUM ----- Indication: Hip fracture.. Technique: AP view of the pelvis and two views of the right hip. Views. Comparison: CT of the right hip from October 05, 2024.. Findings/impression: Nondisplaced fracture of the right greater trochanter. This is better visualized on the recent CT of the right hip. Diffuse demineralization of the visualized bones. Left hip arthroplasty changes. Orthopedic hardware appears to be in appropriate alignment. Bilateral SI joint degenerative changes. Hip CT: Attestation: I have reviewed the pertinent imaging results. Radiologist's impression: CT of the right hip performed without intravenous contrast. FINDINGS: Diffuse osseous demineralization. Acute comminuted mildly displaced fracture of the right femur greater trochanter. The fracture line extends into the intertrochanteric region, but no extension is detected into the femoral neck or lesser trochanter. Mild degenerative change of the right hip. Mild degenerative change of the pubic symphysis with chondrocalcinosis. Partially imaged at least mild degenerative change of the sacroiliac joints. Partially imaged left total hip arthroplasty. Multiple small densely calcified uterine fibroids. There are severe atherosclerotic vascular calcifications. IMPRESSION: Acute comminuted mildly displaced fracture of the right femur greater trochanter. The fracture line extends into the intertrochanteric region, but no extension is detected into the femoral neck or lesser trochanter. Mild degenerative change of the right hip. Discharge Plan Discharge Disposition: [facility] Date of Admission: 10/05/24 17:37 Attending Provider on Discharge: Courtney Baum Consulting Providers: Memo Ramirez; Isaiah Garcia Primary Care Provider: Provider,Not a Local Condition: Stable Anticipated Discharge Date/Time: 10/08/24 12:41 Discharge Medications: New oxycodone 5 mg tablet 2.5 - 5 mg PO Q4-6H MDD 6 PRN (Reason: pain) Qty: 25 0RF Rx Instructions: Take as needed for postop pain: 2.5mg mild pain, 5mg moderate-severe pain; wean as tolerated. acetaminophen 500 mg capsule 1,000 mg PO Q6-8H MDD 3000mg PRNQty: 100 0RF sennosides-docusate sodium [Senna-S] 8.6-50 mg tablet 1 - 2 tab-cap PO BID PRN (Reason: constipation) Qty: 60 0RF Rx Instructions: Hold medication if experiencing loose stools. Continued carvedilol 6.25 mg tablet 6.25 mg PO BID warfarin 2 mg tablet 3 - 4 mg PO DAILY Rx Instructions: 3 MG EVERY TUESDAY, 4 MG ALL OTHER DAYS OF THE WEEK cholecalciferol (vitamin D3) 25 mcg (1,000 unit) capsule 1,000 unit PO DAILY phenytoin sodium extended 100 mg capsule 100 mg PO QAM atorvastatin 20 mg tablet 20 mg PO HS phenytoin sodium extended 100 mg capsule 200 mg PO HS calcium 1 tab PO BID omeprazole 40 mg capsule,delayed release(DR/EC) 40 mg PO DAILY PreserVision AREDS-2 250-90-40-1 mg capsule 1 tab PO BID Discharge Orders: Discharge Order (Routine); Ordered 10/08/24 Ordered By: Courtney Baum Additional Instructions: WARFARIN 4MG TONIGHT AND NIGHTLY. RECHECK INR ON 10/10/2024 INR 1.85 ON 10/08/24 Activity Level: Activity as Tolerated, Weight Bearing as Tolerated and Use Walker Activity Detail: PER PT/OT Discharge Diet: Regular Follow Up Appointments: Provider,Not a Local [Primary Care Provider] - Forms: MyHealth Info Instructions Discharge Comments: Wound: ? Remove surgical dressings after 5 days. Remove dressings sooner if integrity is in question. ? No immersing wound in water; showering okay; light scrub with your hand and body soap, rinse, dab dry ? Sutures are under the skin, will dissolve; allow surgical glue to come off naturally; do not scrub the wound or apply ointments/lotions ? Call our office with any redness that streaks, excessive drainage from the wound, or wound gapping. Ice/Elevate: ? Ice as needed for swelling and discomfort; elevate extremity frequently above the heart. Motion/Exercise: ? Weight bear as tolerated operative extremity (walker/cane for ambulation assistance as needed) ? Per PT/OT. ? Straight leg raises daily: 1-2 sets of 10 reps Pain Medications: ? Oral narcotic as prescribed. Wean as tolerated. Additional acetaminophen and ibuprofen as needed. Blood Clot Prevention (DVT): ? Medication: Coumadin Driving: ? Do not drive while taking narcotic pain medication ? Anticipate 4-6 weeks no driving if operative leg is driving leg Dental: ? No elective dental work for 3 months post-op. If there is an urgent/emergent dental need, contact our office for an antibiotic prescription. Smoking/Alcohol: ? Do not smoke; do no drink alcohol especially when taking postoperative oral narcotic medication Seek Care from you Primary Care Provider if you experience the following issues in the postoperative phase and beyond: ? Bacterial infections such as: pneumonia, bacterial skin infection (cellulitis), UTI, high fever, chills unrelated to the operative body part - call your primary care physician urgently for treatment in hopes to protect your health and the metal implant. Referrals: ? PT, OT per patient preference - evaluate & treat total hip arthroplasty protocol, anterior approach (gait training, ROM, ADLs) Vaccines: ? No vaccines until 4-6 weeks postop Follow up: ? PA-C visit in 1 week or once discharged from SNF ? Ortho surgeon follow-up in 6 weeks; repeat radiographs AP pelvis, cross table lateral operative hip If there are any acute concerns regarding your surgery, please call our orthopedic clinic ([phone]) Admit to: SNF Discharge Potential: Good Length of Stay: <30 days Can use facility standing orders?: Yes Code Status: Full Code Rehab Potential: Good Therapy: Physical Therapy and Occupational Therapy Therapy Orders: Evaluate and Treat Oxygen: No Urinary Catheter: No Next INR: 10/10/2024 INR Goal: 2-3 Orders are good >30 days: No
--- NOTE | 2024-10-08 13:01 | PC.SOCIAL ---
Discharge planning: Met with pt who is requesting short term rehab placement at discharge prior to returning home with . Pt lives in [facility] and requested placement in [facility] or [place] if possible. sheet metal worker helper contacted [facility], [facility], and [facility]. The only facility with a bed available was [facility]. Secure emailed pt information for evaluation for admit. Received call from Sierra at [facility] stating they can accept pt today for admit if she has a negative COVID test result and can arrive by 2:00pm today. Per Sierra, there are several residents with COVID in their care center building. Met with pt who agrees with plan for discharge to [facility] and is aware of some residents having COVID. PT requested non-emergency ambulance be arranged and that her be notified. Called who is very pleased with this plan and agrees wit pay privately for the ambulance transfer expected to cost about $100. PAS completed and submitted PAS#[id number]. sheet metal worker helper to follow up as needed.
[2024-10-08 13:18] LABS: SARS Antigen* Negative (Negative)
--- NOTE | 2024-10-08 15:20 | PC.NURSE ---
Pt up and ambulates with SBA, gait belt, and walker. Tylenol given before therapies per MAR. Pt denies need for any further pain medication. IV DC'd, cath tip intact. DC via EMS to [facility] for rehab @2112.
== END 2024-10-08 14:25 | DRG 481 ==
LOC: ED 15:59 → MEDSURG 17:22
PROVIDERS: Orthopaedic Surgery; Physician Assistant; Admitting Provider Internal Medicine; Emergency Provider Student in an Organized Health Care Education/Training Program; Visit Provider Internal Medicine
PROC: 0QS604Z Reposition Right Upper Femur with Internal Fixation Device, Open Approach (ICD-10-PCS; CPT 27245; principal; 2024-10-06 08:30)
DX: S72.141A Displaced intertrochanteric fracture of right femur, initial encounter for closed fracture (principal); D62 Acute posthemorrhagic anemia; W18.39XA Other fall on same level, initial encounter; Z91.81 History of falling; R50.82 Postprocedural fever; I69.393 Ataxia following cerebral infarction; I69.398 Other sequelae of cerebral infarction; I69.320 Aphasia following cerebral infarction; I69.322 Dysarthria following cerebral infarction; D69.6 Thrombocytopenia, unspecified; R26.89 Other abnormalities of gait and mobility; I10 Essential (primary) hypertension; Z79.01 Long term (current) use of anticoagulants; G40.909 Epilepsy, unspecified, not intractable, without status epilepticus; R27.8 Other lack of coordination; K21.9 Gastro-esophageal reflux disease without esophagitis; E78.5 Hyperlipidemia, unspecified; Z96.642 Presence of left artificial hip joint; Z98.890 Other specified postprocedural states; Z90.49 Acquired absence of other specified parts of digestive tract; Z98.51 Tubal ligation status
CPT/HCPCS: 01210; 36415; 51701; 73502; 73551; 73700; 80048; 81001; 82607; 82728; 83540; 83550; 85025; 85027; 85610; 86140; 87426; 93005; 97110; 97116; 97162; 97165; 97530; 97535; 99140; 99285; A9270; C1713; J0690; J1171; J1650; J2371; J2704; J3010; J3430; J3490; J7030

== ENCOUNTER 2024-10-08 14:28 | Outpatient (CLI) | payer MEDICARE, OTHER, SELFPAY | END 2024-10-08 14:29 | disposition home or self-care (01) | LOC: AMB 10-10 08:06 | PROVIDERS: Visit Provider Emergency Medicine Emergency Medical Services | DX: M25.551 Pain in right hip (principal); Z99.3 Dependence on wheelchair | CPT/HCPCS: A0425; A0428 ==

== ENCOUNTER 2025-09-23 13:20 | Outpatient (CLI) | payer MEDICARE, OTHER, SELFPAY | END 2025-09-23 13:21 | disposition home or self-care (01) | LOC: AMB 09-25 03:23 | PROVIDERS: Visit Provider Emergency Medicine | DX: S39.92XA Unspecified injury of lower back, initial encounter (principal); W01.0XXA Fall on same level from slipping, tripping and stumbling without subsequent striking against object, initial encounter; Y92.009 Unspecified place in unspecified non-institutional (private) residence as the place of occurrence of the external cause | CPT/HCPCS: A0425; A0427 ==

== ENCOUNTER 2025-09-23 14:14 | Emergency (ER) | payer MEDICARE, OTHER, SELFPAY ==
[2025-09-23 14:17] VITALS: BP 158/79; PULSE 84; RESP 18; TEMP 36.7; O2SAT 95; BMI 24.9
--- NOTE | 2025-09-23 14:30 | ED.FALL ---
HPI - Fall General Date Seen: 09/23/25 Chief Complaint: Fall/Minor Trauma Stated Complaint: Fall Time Seen by Provider: 09/23/25 14:30 Source: patient, family, RN notes reviewed and old records reviewed Mode of arrival: ambulatory Limitations: no limitations History of Present Illness HPI Narrative: Marleny is a very pleasant 85-year-old female with history of left shoulder surgery, anticoagulation, history of seizure and chronic kidney disease and CVA , remote history of DVT who comes to the emergency room by EMS after a fall. Marleny was noted to have come in the house was standing on linoleum and unfortunately fell. She had no prodromal symptoms to include headache visual changes chest pain or shortness of breath. She fell onto her buttocks and then onto the floor. Fortunately able to protect her head and she did not hurt her left shoulder. Unfortunately she is had pain in the low back since that time. She denies any numbness or tingling of the legs. No loss of bowel or bladder control. EMS had to be called in order to bring her in as her was afraid to credit control manager because of a left shoulder surgery and chronic pain. Marleny is on warfarin but has no headache neck pain did not lose consciousness. She has no chest pain shortness of breath. Her back pain is all low. She has no buttock pain at this time. No recent fever cough cold congestion. Related Data Home Medications ?Medication ?Instructions ?Recorded ?Confirmed atorvastatin 20 mg tablet 20 mg PO HS 06/02/22 09/23/25 cholecalciferol (vitamin D3) 25 1,000 unit PO DAILY 06/02/22 09/23/25 mcg (1,000 unit) capsule phenytoin sodium extended 100 mg 100 mg PO QA 06/02/22 09/23/25 capsule carvedilol 6.25 mg tablet 6.25 mg PO BID 10/28/23 09/23/25 warfarin 2 mg tablet 3 mg PO DAILY 02/14/24 09/23/25 calcium 1 tab PO BID 10/05/24 09/23/25 omeprazole 40 mg capsule,delayed 40 mg PO DAILY 10/05/24 09/23/25 release phenytoin sodium extended 100 mg 100 mg PO HS 10/05/24 09/23/25 capsule vit C 250 mg-vit E 90 mg-zinc 40 1 tab PO BID 10/05/24 09/23/25 mg-copper 1 [id number] capsule (PreserVision AREDS-2) alendronate 70 mg tablet 70 mg PO .weekly 02/05/25 09/23/25 furosemide 20 mg tablet 10 mg PO DAILY 02/05/25 02/05/25 Previous Rx's ?Medication ?Instructions ?Recorded acetaminophen 500 mg capsule 1,000 mg (2 x 500 mg) PO Q6-8H PRN 10/08/24 #100 caps Allergies Allergy/AdvReac Type Severity Reaction Status Date / Time NSAIDS (Non-Steroidal Allergy Unknown Verified 09/23/25 14:29 Anti-Inflamma Review of Systems Status of ROS: Reports: 10 or more systems reviewed and unremarkable except as noted in History and below Const: Denies: fever, chills or fatigue Eyes: Denies: change in vision ENMT: Denies: throat pain, neck pain or vertigo Cardio: Denies: chest pain, palpitations, swelling of feet/ankles, lightheadedness or shortness of breath with exertion Resp: Denies: shortness of breath or cough GI: Denies: abdominal pain, nausea or vomiting : Denies: painful urination Musculo: Reports: back pain and extremity pain (Chronic left shoulder); Denies: neck pain or extremity swelling Integ/Breast: Reports: skin swelling (Chronic in the left hand and improving) Neuro: Denies: headache, numbness in extremities, weakness in extremities, lack of coordination, dizziness, vertigo, confusion, behavioral changes or slurred speech Endo: Denies: fatigue PFSH PFSH Medical History Closed left humeral fracture ?S42.302A - Unspecified fracture of shaft of humerus, left arm, initial encounter for closed fracture (ICD-10) Chronic anticoagulation ?Z79.01 - [facility] (current) use of anticoagulants (ICD-10) Seizure disorder ?G40.909 - Epilepsy, unspecified, not intractable, without status epilepticus (ICD-10) Constipation ?K59.00 - Constipation, unspecified (ICD-10) Cerebellar dysmetria ?R27.8 - Other lack of coordination (ICD-10) Lumbar spinal stenosis ?M48.061 - Spinal stenosis, lumbar region without neurogenic claudication (ICD-10) Hyperlipidemia ?E78.5 - Hyperlipidemia, unspecified (ICD-10) Obstructive sleep apnea ?G47.33 - Obstructive sleep apnea (adult) (pediatric) (ICD-10) Chronic kidney disease ?N18.9 - Chronic kidney disease, unspecified (ICD-10) Essential hypertension ?I10 - Essential (primary) hypertension (ICD-10) Osteoarthritis ?M19.90 - Unspecified osteoarthritis, unspecified site (ICD-10) 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 - Ataxia following cerebral infarction (ICD-10) History of cerebellar stroke ?Z86.73 - Personal history of transient ischemic attack (TIA), and cerebral infarction without residual deficits (ICD-10) History of embolic stroke ?Z86.73 - Personal history of transient ischemic attack (TIA), and cerebral infarction without residual deficits (ICD-10) DVT (deep venous thrombosis) (2012) ?I82.409 - Acute embolism and thrombosis of unspecified deep veins of unspecified lower extremity (ICD-10) Arthritis ?M19.90 - Unspecified osteoarthritis, unspecified site (ICD-10) GERD (gastroesophageal reflux disease) ?K21.9 - Gastro-esophageal reflux disease without esophagitis (ICD-10) Sleep apnea ?G47.30 - Sleep apnea, unspecified (ICD-10) Seizures ?R56.9 - Unspecified convulsions (ICD-10) Surgical History History of thumb surgery (04/17/14) ?Z98.890 - Other specified postprocedural states (ICD-10) History of thumb surgery (03/15/18) ?Z98.890 - Other specified postprocedural states (ICD-10) History of arthroscopy of right shoulder (09/11/14) ?Z98.890 - Other specified postprocedural states (ICD-10) H/O tubal ligation ?Z98.51 - Tubal ligation status (ICD-10) 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) ?Z96.652 - Presence of left artificial knee joint (ICD-10) History of appendectomy ?Z90.49 - Acquired absence of other specified parts of digestive tract (ICD-10) 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) ?Z96.642 - Presence of left artificial hip joint (ICD-10) Family History Mother Diabetes Heart problem High blood pressure Father Alcohol dependence Sister COPD (chronic obstructive pulmonary disease) Heart problem Other Rheumatoid arthritis Social History What is your current living situation?: I presently have a place to live Problems where you live: no known problems Problems where you live details: chair lift system as well In the past 12 months, utilities in danger of being shut off: no In past 12 months, lack of transportation kept you from medical appts, meetings, work, or getting things needed for daily living: no In the past 12 mos, have been you worried that your food would run out before you had money to buy more?: never true In the past 12 mos, the food you bought just didn't last and you didn't have money to buy more?: never true Highest level of school completed/degree received: high school graduate Smoking Status: Never smoker Do you use any of these nicotine containing products: None Second hand tobacco smoke exposure: No How often do you have a drink containing alcohol: 4 or more times a week Alcohol type: wine How many standard drinks containing alcohol do you have on a typical day: 1 or 2 How often do you have six or more drinks on one occasion: Never AUDIT-C Alcohol total score: 4 Non-prescribed substance use: denies use Caffeine: Yes (cup coffee daily) How often does anyone, including family, friends and others, physically hurt you: never How often does anyone, including family, friends and others, insult or talk down to you: never How often does anyone, including family, friends and others, threaten you with harm: never How often does anyone, including family, friends and others, scream or curse at you: never service: No Exam Narrative: Exam Narrative: Marleny is very pleasant woman looking younger than her stated age. She is in no acute distress is able to she but talk normally. Speech and mentation intact. GCS of 15. She has EOM that are full pupils equal round reactive face symmetrical smile eyebrow raise intact. She has no palpable tenderness edema or signs of trauma on her scalp. Her neck is supple without any discomfort. Range of motion is full. Her heart is with regular rate and rhythm. I do hear a 3/6 systolic murmur noted. Lungs are clear. Palpation down her thoracic spine without pain. She has a silver dollar sized area of slight erythema with some superficial skin abrasion at approximately L5-S1. It is tender in this area. No pain in her buttocks bilaterally. Lower extremities are with with 1+ peripheral edema. Full motion. Sensation is intact. Examination of her left hand shows some slight edema of the hand. She is able to move her hand but very protective of her shoulder. Const: Vital Signs, click to edit/add: Vital Signs - 24 hr 09/23/25 14:17 Temperature 98.1 F Pulse Rate [Pulse Oximeter] 84 Respiratory Rate 18 Blood Pressure [Ri ght Upper Arm] 158/79 H Pulse Oximetry 95 Oxygen Delivery Me thod Room Air Documenting provider has reviewed patient's vital signs: yes Course Course ED Course: At this time Marleny has complaints of low back pain without any neurological symptoms. Given her age I do discussed CT in lieu of plain x-rays. I think we need to CT her as it is much more sensitive for any fractures. She agrees to this. She has no buttock pain at this time. In regards to her head. She certainly meets age criteria and is on a blood thinner but she has no external signs of trauma and has no head pain at this time. She is mentating normally with no evidence of nausea vomiting confusion visual changes. Given this we will hold off on a head CT. Vital Signs Vital signs: Initial Vital Signs Temperature 98.1 F 09/23/25 14:17 Temperature Source Temporal Artery Scan 09/23/25 14:17 Pulse Rate 84 09/23/25 14:17 Respiratory Rate 18 09/23/25 14:17 Blood Pressure 158/79 H 09/23/25 14:17 Blood Pressure Mean 105 09/23/25 14:17 Blood Pressure Position Sitting 09/23/25 14:17 Pulse Oximetry 95 09/23/25 14:17 Oxygen Delivery Method Room Air 09/23/25 14:17 Vital Signs Temperature 98.1 F 09/23/25 14:17 Pulse Rate 84 09/23/25 14:17 Respiratory Rate 18 09/23/25 14:17 Blood Pressure 158/79 H 09/23/25 14:17 Pulse Oximetry 95 09/23/25 14:17 Oxygen Delivery Method Room Air 09/23/25 14:17 Temperature 98.1 F 09/23/25 14:17 Pulse Rate 84 09/23/25 14:17 Respiratory Rate 18 09/23/25 14:17 Blood Pressure 158/79 H 09/23/25 14:17 Pulse Oximetry 95 09/23/25 14:17 Oxygen Delivery Method Room Air 09/23/25 14:17 MDM - Fall MDM Narrative Medical decision making narrative: 1. Low back injury-soft tissue injury of the low back. CT without evidence of acute bony injury. Patient did note that while she was finishing up with CT she did not realize she had to go to the bathroom is better she did and did have some incontinence. As soon as they could they got her to the bathroom and she said she had a very full bladder. Since that time no incontinence. She has no numbness in the size no evidence of saddle anesthesia and her CT is reassuring. Would recommend acetaminophen 1 g p.o. t.i.d. p.r.n. pain. Patient does have oxycodone at home from her previous shoulder surgery. It is recommended that she take 1/2-1 tab every 4-6 hours as needed for discomfort. Have warned her of the constipating effects and that this medication can make you feel very lightheaded and that we made increased is a fall risk. He is understanding of that. If she has worsening symptoms of leg symptoms loss of bowel or bladder control she will seek medical attention as she may need an MRI. 2. Fall-patient really could not explain the reason for the fall. She thinks that her some shoe slipped. Her is fairly adamant that this is what is happened as she does not wear good shoes. There was no evidence of seizure activity, she did not lose consciousness and she denies any prodromal symptoms. Did offer to check her harder lecture lytes and they are anxious to go at this time. Would recommend returning if she has onset of fever chills confusion vomiting or any worsening symptoms. 3. Disposition-home at this time with her . Will make sure that she is up in able to walk prior to discharge. She feels comfortable going home at this time. Did not do a head CT given lack of any evidence of injury in this patient who is alert oriented with no evidence of dementia or mentation compromise. Medical Records Attestation: I reviewed the patient's medical records. Imaging Data Lumbar spine CT: Attestation: I have reviewed the pertinent imaging results. My impression: I do not note any acute fractures. Radiologist's impression: FINDINGS: Alignment: Grade 1 degenerative anterolisthesis of L4 on L5. Lumbar dextroscoliosis. No significant widening of the intervertebral disc spaces, interfacetal joints or interspinous distances. Vertebrae: Vertebral bodies, pedicles, laminae, articular, transverse and spinous processes are intact. Advanced disc degeneration from T12-L1 through the level of L5-S1. Soft Tissues: No perivertebral edema or hemorrhage. Extraspinal Anatomy: No significant findings. Incidental note is made of a moderate hiatus hernia, right coronary atherosclerotic calcifications. Cholelithiasis. Bilateral renal cortical cysts including a peripherally calcified left upper pole cyst measuring simple fluid attenuation on region of interest interrogation. The left kidney is malrotated. Nonspecific moderate colonic fecal burden. No signs of stercoral colitis. IMPRESSION: No acute traumatic injury is identified. Incidental findings described in the body of the report. Discharge Plan Discharge Clinical Impression: Fall Qualifiers: Encounter type: initial encounter Qualified Code(s): W19.XXXA - Unspecified fall, initial encounter Injury of low back Qualifiers: Encounter type: initial encounter Qualified Code(s): S39.92XA - Unspecified injury of lower back, initial encounter Patient Disposition: Home, Self-Care Condition: Unchanged Instructions: Fall Prevention for Older Adults (ED) Additional Instructions: For pain acetaminophen 1000 mg every 8 hours as needed for discomfort. You may use your oxycodone at home 1/2-1 pill every 4-6 hours as needed. Please be aware that this pill unfortunately will cause constipation and you may want to start a stool softener. We do have increased worry when somebody falls and they are on a blood thinner as well as are over the age of 65. You had no evidence of external signs of trauma to your head. However, should you develop nausea, visual changes, headache, confusion I do want should return to the emergency room for further evaluation. In addition, should you develop loss of bowel or bladder control, numbness or tingling of the legs, weakness of the lower extremities please return for further evaluation. Prescriptions: No Action carvedilol 6.25 mg tablet 6.25 mg PO BID warfarin 2 mg tablet 3 mg PO DAILY Rx Instructions: 3 MG EVERY TUESDAY, 2 MG ALL OTHER DAYS OF THE WEEK alendronate 70 mg tablet 70 mg PO .weekly Patient Comments: Tuesday takes furosemide 20 mg tablet 10 mg PO DAILY cholecalciferol (vitamin D3) 25 mcg (1,000 unit) capsule 1,000 unit PO DAILY phenytoin sodium extended 100 mg capsule 100 mg PO QAM atorvastatin 20 mg tablet 20 mg PO HS phenytoin sodium extended 100 mg capsule 100 mg PO HS Patient Comments: at 1400 calcium 1 tab PO BID omeprazole 40 mg capsule,delayed release(DR/EC) 40 mg PO DAILY PreserVision AREDS-2 250-90-40-1 mg capsule 1 tab PO BID acetaminophen 500 mg capsule 1,000 mg PO Q6-8H MDD 3000mg PRNQty: 100 0RF Follow Up/Referrals: Provider,Not a Local [Primary Care Provider, Family Practice] Stand Alone Forms: [facility] Info Instructions
--- NOTE | 2025-09-23 14:35 | CRLHL7_ITS ---
For Patients: As a result of the Century Cures Act, medical imaging exams and procedure reports are released immediately into your electronic medical record. You may view this report before your referring provider. If you have questions, please contact your health care provider. INDICATION: Fall. Back pain, not otherwise specified. COMPARISON: None available. TECHNIQUE: CT of the lumbar spine without intravenous contrast. Please note that all CT scans at this facility use dose modulation, iterative reconstruction, and/or weight-based dosing when appropriate to reduce radiation dose to as low as reasonably achievable. FINDINGS: Alignment: Grade 1 degenerative anterolisthesis of L4 on L5. Lumbar dextroscoliosis. No significant widening of the intervertebral disc spaces, interfacetal joints or interspinous distances. Vertebrae: Vertebral bodies, pedicles, laminae, articular, transverse and spinous processes are intact. Advanced disc degeneration from T12-L1 through the level of L5-S1. Soft Tissues: No perivertebral edema or hemorrhage. Extraspinal Anatomy: No significant findings. Incidental note is made of a moderate hiatus hernia, right coronary atherosclerotic calcifications. Cholelithiasis. Bilateral renal cortical cysts including a peripherally calcified left upper pole cyst measuring simple fluid attenuation on region of interest interrogation. The left kidney is malrotated. Nonspecific moderate colonic fecal burden. No signs of stercoral colitis. IMPRESSION: No acute traumatic injury is identified. Incidental findings described in the body of the report. Please note that all CT scans at this facility use dose modulation, iterative reconstruction, and/or weight-based dosing when appropriate to reduce radiation dose to as low as reasonably achievable. Dictated by Kin Pedersen MD @ 09/23/2025 3:37:15 PM (Electronically Signed)
== END 2025-09-23 16:28 | disposition home or self-care (01) ==
PROVIDERS: Emergency Provider Family Medicine
DX: S39.92XA Unspecified injury of lower back, initial encounter (principal); W18.30XA Fall on same level, unspecified, initial encounter; Z86.718 Personal history of other venous thrombosis and embolism; Z79.01 Long term (current) use of anticoagulants
CPT/HCPCS: 72131; 99283; 99284